=== PATIENT | female | born 1945 | race Caucasian/White ===

== ENCOUNTER 2017-04-19 06:03 | Inpatient (IN) | payer BC, MEDICAID ==
[2017-04-19] VITALS (7 sets, daily range): BP systolic 113–150; BP diastolic 67–104; PULSE 76–162; RESP 18–20; TEMP 98.1; Ht 152.4 cm; Wt 102.0 kg
[~2017-04-19] VITALS: Ht 152.4 cm; Wt 102.0 kg
[~2017-04-19 06:03] MED LIST: METO-448 PO; THY15 PO; THYR60TA PO
[2017-04-19] MEDS ORDERED: ASPIRIN 325 MG TAB PO STA (06:53)
[2017-04-19] MEDS ORDERED: DILTIAZEM 25 MG INJ IV ONE (07:00)
[2017-04-19] MEDS ORDERED: ENOXAPARIN 100 MG/ML SYG SC ONE (07:00)
[2017-04-19] MEDS ORDERED: DILTIAZEM-D5W 125MG/125ML DRIP 125 ML IV SCH ×2 (07:00→15:30)
[2017-04-19 07:49] LABS: BASOPHILS % 0.9 % (0.0-2.0); EOSINOPHILS # 0.1 10^3/ul (0.0-0.5); EOSINOPHILS % 1.7 % (0.0-7.0); HEMATOCRIT 48.2 % (37.0-47.0); HEMOGLOBIN 16.1 g/dl (12.0-16.0); LYMPHOCYTES # 1.3 10^3/ul (0.8-2.9); LYMPHOCYTES % 27.2 % (15.0-51.0); MEAN CORPUSCULAR HEMOGLOBIN 32.8 pg (29.0-33.0); MEAN CORPUSCULAR HGB CONC 33.4 g/dl (32.0-37.0); MEAN CORPUSCULAR VOLUME 98.2 fl (82.0-101.0); MEAN PLATELET VOLUME 9.9 fl (7.4-10.4); MONOCYTE # 0.5 10^3/ul (0.3-0.9); MONOCYTES % 11.5 % (0.0-11.0); NEUTROPHIL # 2.7 10^3/ul (1.6-7.5); NEUTROPHILS % 58.3 % (39.0-77.0); PLATELET COUNT 186 10^3/UL (140-415); RED BLOOD COUNT 4.91 10^6/ul (4.20-5.40); RED CELL DISTRIBUTION WIDTH 13.3 % (11.5-14.5); WHITE BLOOD COUNT 4.7 10^3/ul (4.8-10.8)
[2017-04-19] MEDS ORDERED: NICARDipine HCL 30 MG CAPSULE PO ONE ×2 (08:00→10:00)
--- NOTE | 2017-04-19 08:13 | RADRPT ---
PROCEDURE: XR Chest. CLINICAL INDICATION: Chest pain. TECHNIQUE: Single frontal chest x-ray. COMPARISON: Chest radiograph 02/04/2016. FINDINGS: The cardiac silhouette is mildly enlarged. There is mild pulmonary vascular congestion. Aortic ath erosclerotic vascular calcifications are identified. No pneumothorax, pleural effusion or consolidation is seen. No acute osseous abnormality is noted. IMPRESSION: 1. Mild cardiomegaly and pulmonary vascular congestion. 2. Aortic atherosclerosis. RPTAT: UU .Juanita Aly MD, Date Time Electronically viewed and signed by .Juanita Aly MD, on 04/19/2017 08:13 .N/
[2017-04-19 08:24] LABS: INR 0.95; PROTIME 12.7 Sec (12.2-14.2)
[2017-04-19 08:25] LABS: PARTIAL THROMBOPLASTIN TIME 26.7 Sec (25.0-35.0)
[2017-04-19 08:30] LABS: ALBUMIN 4.2 g/dl (3.3-4.9); ALBUMIN/GLOBULIN RATIO 1.44; BILIRUBIN,INDIRECT 0.6 mg/dl (0-1.1); BILIRUBIN,TOTAL 0.6 mg/dl (0.2-1.3); CALCIUM 9.1 mg/dl (8.4-10.2); CREATININE 0.76 mg/dl (0.44-1.00); POTASSIUM 4.1 mmol/L (3.5-5.1); TOTAL PROTEIN 7.1 g/dl (6.1-8.1)
[2017-04-19 08:43] LABS: TROPONIN-I 0.012 ng/ml (0.00-0.12)
--- NOTE | 2017-04-19 09:00 | ERA ---
ER Documentation Chief Complaint Date/Time DATE: 04/19/17 TIME: 08:56 Chief Complaint PALPITATIONS X 1 MONTH HPI This is a 71-year-old female with a history of atrial fibrillation in the . The patient states for the past month she has had off-and-on palpitations and dizziness. The palpitations do not occur daily and do not last more than a couple of hours she states. She says she has no chest pain no shortness of breath no pain in the neck shoulders arms elbows. She says she is not on any blood thinners. She said today her palpitations began this morning when she woke have not subsided so she is here for evaluation. ROS All systems reviewed and are negative except as per history of present illness. Medications Home Meds Active Scripts Metoprolol Tartrate* (Lopressor*) 25 Mg Tab, 25 MG PO BID for 30 Days, TAB 3 Refills Prov:SREEDHAR DESAI F 01/26/15 Reported Medications Thyroid* (Thyroid*) 15 Mg Tablet, 30 MG PO on , TAB 07/08/15 Thyroid* ([place] Thyroid*) 60 Mg Tablet, 60 MG PO DAILY, TAB 01/25/15 Allergies Allergies: Coded Allergies: Penicillins (Verified Allergy, Mild, 07/08/15) acetaminophen (Verified Allergy, Unknown, vomiting, 07/08/15) hydrocodone (Verified Allergy, Unknown, vomiting, 07/08/15) PMhx/Soc History of Surgery: Yes (appendectomy, port removal) Anesthesia Reaction: No Hx Neurological Disorder: No Hx Respiratory Disorders: No Hx Cardiac Disorders: Yes (AFIB., CARDIAC ARREST, CHF, HTN) Hx Psychiatric Problems: No Hx Miscellaneous Medical Probl: Yes (HYPOTHYROID, diverticulitis) Hx Alcohol Use: Yes (martini daily) Hx Substance Use: No Hx Tobacco Use: Yes Smoking Status: Former smoker FmHx Family History: No coronary disease Physical Exam Vitals Vital Signs Date Time Temp Pulse Resp B/P Pulse Ox O2 Delivery O2 Flow Rate FiO2 04/19/17 07:29 Nasal Cannula 2 04/19/17 06:22 98.1 142 18 172/123 99 Physical Exam Const: Well-developed, well-nourished Head: Atraumatic, normocephalic Eyes: Normal Conjunctiva, PERRLA, EOMI, normal sclera, no nystagmus ENT: Normal External Ears, Nose and Mouth, moist mucus membranes. Neck: Full range of motion. No meningismus, no lymphadenopathy. Resp: Clear to auscultation bilaterally, no wheezing, rhonchi, rales Cardio: Tachycardia irregularly irregular rhythm, no murmurs, S1 S2 present Abd: Soft, non tender x 4, non distended. Normal bowel sounds, no guarding or rebound, no pulsitile abdominal masses or bruits Skin: No petechiae or rashes, no ecchymosis , no maculopapular rash Back: No midline or flank tenderness Ext: No cyanosis, or edema, FROM x 4, normal inspection, neurovascularly intact x 4 Neur: Awake and alert, STR 5/5 x 4, sensation intact x 4, no focal findings, cerebellum intact Psych: Normal Mood and Affect Result Diagram: 04/19/17 0720 04/19/17 0720 Results 24 hrs Laboratory Tests Test 04/19/17 07:20 White Blood Count 4.710^3/ul Red Blood Count 4.9110^6/ul Hemoglobin 16.1g/dl Hematocrit 48.2% Mean Corpuscular Volume 98.2fl Mean Corpuscular Hemoglobin 32.8pg Mean Corpuscular Hemoglobin Concent 33.4g/dl Red Cell Distribution Width 13.3% Platelet Count 81071^3/UL Mean Platelet Volume 9.9fl Neutrophils % 58.3% Lymphocytes % 27.2% Monocytes % 11.5% Eosinophils % 1.7% Basophils % 0.9% Nucleated Red Blood Cells % 0.0/100WBC Neutrophils # 2.710^3/ul Lymphocytes # 1.310^3/ul Monocytes # 0.510^3/ul Eosinophils # 0.110^3/ul Basophils # 0.010^3/ul Nucleated Red Blood Cells # 0.010^3/ul Prothrombin Time 12.7Sec Prothrombin Time Ratio 1.0 INR International Normalized Ratio 0.95 Activated Partial Thromboplast Time 26.7Sec Sodium Level 146mmol/L Potassium Level 4.1mmol/L Chloride Level 107mmol/L Carbon Dioxide Level 23mmol/L Anion Gap 20 Blood Urea Nitrogen 11mg/dl Creatinine 0.76mg/dl Glucose Level 121mg/dl Calcium Level 9.1mg/dl Total Bilirubin 0.6mg/dl Direct Bilirubin 0.00mg/dl Indirect Bilirubin 0.6mg/dl Aspartate Amino Transf (AST/SGOT) 34IU/L Alanine Aminotransferase (ALT/SGPT) 34IU/L Alkaline Phosphatase 77IU/L Troponin I 0.012ng/ml B-Type Natriuretic Peptide 878PG/ML Total Protein 7.1g/dl Albumin 4.2g/dl Globulin 2.90g/dl Albumin/Globulin Ratio 1.44 Current Medications Medications (Trade) Dose Ordered Sig/Karlee Route PRN Reason Start Time Stop Time Status Last Admin Dose Admin Aspirin (Aspirin) 325 mg ONCE STAT PO 04/19/17 06:53 04/19/17 06:54 DC 04/19/17 07:24 Enoxaparin Sodium (Lovenox) 100 mg ONCE ONCE SC 04/19/17 07:00 04/19/17 07:01 DC 04/19/17 07:23 Diltiazem HCl 20 mg 20 mg ONCE ONCE IV 04/19/17 07:00 04/19/17 07:01 DC 04/19/17 07:15 Diltiazem HCl (Cardizem-D5W 125 Mg/125 ml Drip) 125 ml @ 0 mls/hr Q0M IV 04/19/17 07:00 04/19/17 07:23 Nicardipine HCl (Cardene) 30 mg ONCE ONCE PO 04/19/17 08:00 04/19/17 08:01 DC 04/19/17 07:42 Procedures/MDM EKG: Rate/Rhythm: Atrial fibrillation with RVR rate 143. Right axis deviation QRS, ST, QT: NORMAL, QRS, QT] Impression: A. fib with RVR ROCEDURE: XR Chest. CLINICAL INDICATION: Chest pain. TECHNIQUE: Single frontal chest x-ray. COMPARISON: Chest radiograph 02/04/2016. FINDINGS: The cardiac silhouette is mildly enlarged. There is mild pulmonary vascular congestion. Aortic atherosclerotic vascular calcifications are identified. No pneumothorax, pleural effusion or consolidation is seen. No acute osseous abnormality is noted. IMPRESSION: 1. Mild cardiomegaly and pulmonary vascular congestion. 2. Aortic atherosclerosis. RPTAT: UU .Farbod Nasseri, MD, Date Time Electronically viewed and signed by .Juanita Aly MD, MD on 04/19/2017 08: 13 .N/ CC: SUNNY WARREN DO Patient was given Cardizem IV bolus followed by a Cardizem drip which is resulted in a rate controlled atrial fibrillation. Patient blood pressure is quite elevated on arrival of 174/126. Is now better after Cardizem drip and Cardene p.o. The patient will be admitted to the hospital for A. fib with RVR and uncontrolled hypertension. She was given Lovenox 100 mg subcu. Critical Care Time: 32 minutes Treatments/Evaluations: Close monitoring and treatment of unstable vital signs, cardiorespiratory, and neurologic status, while maintaining tight balance of fluid, respiratory, and cardiac interventions. This time includes discussing the case with the patient and the patient's family. This time does not include all procedures stated elsewhere in this record. This time also includes reviewing old records, labs and radiological studies. This time includes examining and re-examining the patient. Additionally, this time also includes arranging care with admitting and consulting physicians. Departure Diagnosis: Primary Impression: Rapid atrial fibrillation Additional Impression: Uncontrolled hypertension Condition: Stable SUNNY WARREN DO Apr 19, 2017 09:00
[2017-04-19] MEDS ORDERED: LEVO125T71 PO (09:38)
[2017-04-19] MEDS ORDERED: hydrALAzine 20 MG INJ IV ONE (10:00)
[2017-04-19] MEDS ORDERED: ONDANSETRON 4 MG INJ IV PRN ×2 (10:00→15:30)
[2017-04-19] MEDS ORDERED: ACETAMINOPHEN 325 MG TAB PO PRN ×2 (10:00→15:30)
[2017-04-19] MEDS ORDERED: traMADol 50 MG TAB PO ONE (13:30)
--- NOTE | 2017-04-19 15:04 | HP ---
Date/Time of Note Date/Time of Note DATE: 04/19/17 TIME: 15:00 Assessment/Plan VTE Prophylaxis VTE Prophylaxis Intervention: LMWH (Anticoagulation in setting of A. fib) Lines/Catheters IV [facility] Saline Lock Assessment/Plan Assessment/Plan 71-year-old female with: 1. Atrial fibrillation, chronic, patient has tapered off herself on metoprolol at least a year ago therefore not recently treated. She claims recurrence of symptoms a month ago and currently in A. fib with RVR. Dr. Carpenter's partner has been called for consultation, patient on Cardizem drip, will start Lovenox for anticoagulation but the patient usually refuses to take anything. We will check thyroid function testing and a repeat echocardiogram Rule out for acute coronary syndrome. Further recommendations per cardiology. 2. Hypothyroidism: Check thyroid function testing, continue levothyroxine 3. Hypertension: Currently under control while on Cardizem drip, additional medications as needed Prophylaxis: Pepcid for GI prophylaxis, Lovenox full dose for stroke prophylaxis while in atrial fibrillation Disposition: Admit to telemetry, cardiology consult pending, heart rate control. HPI/ROS Admit Date/Time Admit Date/Time Apr 19, 2017 at 09:37 Hx of Present Illness Chief complaint: Palpitations and shortness of breath History of presenting illness: This is a 71-year-old female with known atrial fibrillation and hypothyroidism. She has been seen in the past started on metoprolol she is a patient of Dr. Carpenter or at least meant to be a patient of Dr. Carpenter and presented this morning with complaint of palpitations and shortness of breath when she woke up On her last admission patient was discharged on metoprolol for rate control along with anticoagulation however she reports that she has refused to take anticoagulation and she tapered herself off the metoprolol because she was having side effects from it. To be noted she has not seen any physicians in the meantime as she said because she was off all medication she felt like she did not need to follow-up with any physician. She reports that over the past year she has been doing well however over the past month she started having episodes of palpitations. She tried to relax, avoid stressful situations as she did not want to resume any medications. However this morning she woke up with palpitations and fluttering of her chest, also was short of breath so she decided to come to the emergency department. She was found to be in atrial fibrillation and rapid ventricular rate with heart rate in the 150s. She denies chest pain, nausea, vomiting, diaphoresis, dizziness, abdominal pain, genitourinary complaints, neurological deficit. She is currently on Cardizem drip. Dr. Carpenter has been called and one of her partners will be seeing the patient. PMH/Family/Social Past Medical History Atrial fibrillation, chronic and off medication for the past year on her own volition Hypothyroidism Hypertension Anxiety disorder Medical History: hypertension, hyperthyroid Past Surgical History Status post partial colectomy for diverticulitis and colostomy reversal in 2011 Status post hysterectomy Family History Significant Family History: no pertinent family hx Social History Alcohol Use: none Smoking Status: Former smoker Drug Use: none Exam/Review of Systems Vital Signs Vitals Vital Signs Date Time Temp Pulse Resp B/P Pulse Ox O2 Delivery O2 Flow Rate FiO2 04/19/17 12:26 98.2 105 18 149/67 94 Room Air 04/19/17 07:29 2 Exam Constitutional: alert, oriented, other (Obese), well developed Respiratory: clear to auscultation, normal air movement Cardiovascular: irregular rhythm (Uncontrolled A. fib but heart rate down to 120) Gastrointestinal: non-tender, soft Musculoskeletal: nl extremities to inspection Extremities: normal pulses, other (No edema, clubbing or cyanosis) Neurological: CELLOPHANER II-XII intact, nl mental status, nl speech, nl strength Labs Result Diagram: 04/19/1771904/19/17719 Medications Medications Outpatient medications: Levothyroxine 125 mcg daily Current Medications Diltiazem HCl (Cardizem-D5W 125 Mg/125 ml Drip) 125 ml @ 0 mls/hr Q0M IV Last administered on 04/19/17t 07:23; Admin Dose 5 MLS/HR; Start 04/19/17 at 07:00 Procedures Procedures PROCEDURE: XR Chest. CLINICAL INDICATION: Chest pain. TECHNIQUE: Single frontal chest x-ray. COMPARISON: Chest radiograph 02/04/2016. FINDINGS: The cardiac silhouette is mildly enlarged. There is mild pulmonary vascular congestion. Aortic atherosclerotic vascular calcifications are identified. No pneumothorax, pleural effusion or consolidation is seen. No acute osseous abnormality is noted. IMPRESSION: 1. Mild cardiomegaly and pulmonary vascular congestion. 2. Aortic atherosclerosis. RPTAT: UU .Juanita Aly MD, Date Time Electronically viewed and signed by .Juanita Aly MD, on 04/19/2017 08:13 SREEDHAR DESAI Apr 19, 2017 15:04
[2017-04-19] MEDS ORDERED: traMADol 50 MG TAB PO PRN (15:30)
[2017-04-19] MEDS ORDERED: NACL 0.9% 3 ML SYG IV SCH (15:30)
[2017-04-19] MEDS ORDERED: MAGNESIUM HYDROXIDE 30ML CUP PO PRN (15:30)
[2017-04-19] MEDS ORDERED: DOCUSATE SODIUM 100 MG CAP PO PRN (15:30)
[2017-04-19] MEDS ORDERED: NITROGLYCERIN (SL) 0.4 MG TAB SL PRN (15:30)
[2017-04-19] MEDS ORDERED: LORAZEPAM 0.5 MG TAB PO PRN (15:30)
[2017-04-19] MEDS ORDERED: BISACODYL 10 MG SUPP PR PRN (15:30)
[2017-04-19] MEDS ORDERED: DIGOXIN 500 MCG INJ IV ONE (16:00)
--- NOTE | 2017-04-19 16:11 | CONS ---
Date/Time of Note Date/Time of Note DATE: 04/19/17 TIME: 16:03 Assessment/Plan Assessment/Plan Additional Assessment/Plan 1. Afib with RVR 2. HTN 3. CHF/ SOB due to above. 4. noncomliance 5. hypothyroidism REC: ASA since she refuses anticoagluation echo check TSH/ Free TSH and adjust. will start coreg po and adjust dig iv for now titrate off cardizem iv drip once HR IS BETTER controlled. out pt follow up with DR Dow Consultation Date/Type/Reason Admit Date/Time Apr 19, 2017 at 09:37 Date of Consultation: Apr 19, 2017 Type of Consultation: CARDIIOLOGY Reason for Consultation AFIB WITH RVR Referring Provider: SREEDHAR DESAI Cardiology consultation ( on behalf of Dr. Dow) Dear , thank you for his referral. This is a 71-year-old female with history of chronic atrial fibrillation noncompliant, hypothyroidism who has not been feeling well over the past month at least. Patient says that today she felt worse she was having palpitations shortness of breath difficulty breathing. She decided to come to the emergency room was noted to be severely hypertensive as her atrial fibrillation rapid ventricular response heart around 150s. Patient has been placed on Cardizem drip harvested elevated in atrial fibrillation. Breathing better dull and is feeling better. Review of the old social the patient has previously had atrial fibrillation. She was previously discharged anticoagulation of metoprolol. However she has refused to have any follow-up done with her nursing informatics clinical analyst Dr. Dow on a regular basis. She has "Wean herself off of metoprolol" and she states that she is refusing to take any anticoagulant because it is " rat poison". She states that she likes to take only natural medication. She has had a metoprolol did not feed well will had and she does not want to take it. Patient denies any chest pain or pressure to me. Medications At Home Synthroid Allergies penicillin Tylenol hydrocodone but her report Family history other eloquently artery disease. Past Medical History Medical History: hypertension, hyperthyroid Social History Alcohol Use: none Smoking Status: Former smoker Drug Use: none Exam/Review of Systems Vital Signs Vitals Vital Signs Date Time Temp Pulse Resp B/P Pulse Ox O2 Delivery O2 Flow Rate FiO2 04/19/17 12:26 98.2 105 18 149/67 94 Room Air 04/19/17 07:29 2 Exam General: no acute distress. obese. HEENT: NC/AT. pupils are equal. round. NECK: NO JVD. no stridor. CV: irregularly irregular. systolic murmur; no gallop or rubs. PULM: no wheezing or rhonchi. GI: SOFT, NT, ND, no rebound or guarding Extremity: + B/L LE edema. no clubbing. neuro: awake and alert, OX3. Psych: calm and pleasant rectal: deferred : normal ECG afib RVR. nonspecific ST abn Results Result Diagram: 04/19/17 0720 04/19/17 0720 Results 24 hrs Laboratory Tests Test 04/19/17 07:20 White Blood Count 4.7 L Red Blood Count 4.91 Hemoglobin 16.1 H Hematocrit 48.2 H Mean Corpuscular Volume 98.2 Mean Corpuscular Hemoglobin 32.8 Mean Corpuscular Hemoglobin Concent 33.4 Red Cell Distribution Width 13.3 Platelet Count 186 Mean Platelet Volume 9.9 # Neutrophils % 58.3 Lymphocytes % 27.2 Monocytes % 11.5 H Eosinophils % 1.7 Basophils % 0.9 Nucleated Red Blood Cells % 0.0 Neutrophils # 2.7 Lymphocytes # 1.3 Monocytes # 0.5 Eosinophils # 0.1 Basophils # 0.0 Nucleated Red Blood Cells # 0.0 Prothrombin Time 12.7 Prothrombin Time Ratio 1.0 INR International Normalized Ratio 0.95 Activated Partial Thromboplast Time 26.7 Sodium Level 146 H Potassium Level 4.1 Chloride Level 107 Carbon Dioxide Level 23 Anion Gap 20 H Blood Urea Nitrogen 11 Creatinine 0.76 Glucose Level 121 Calcium Level 9.1 Total Bilirubin 0.6 Direct Bilirubin 0.00 Indirect Bilirubin 0.6 Aspartate Amino Transf (AST/SGOT) 34 Alanine Aminotransferase (ALT/SGPT) 34 Alkaline Phosphatase 77 Troponin I 0.012 B-Type Natriuretic Peptide 878 H Total Protein 7.1 Albumin 4.2 Globulin 2.90 Albumin/Globulin Ratio 1.44 Medications Medications Current Medications Tramadol HCl (Ultram) 50 mg Q6H PRN PO PAIN; Start 04/19/17 at 15:30 Lorazepam (Ativan) 0.5 mg Q8H PRN PO ANXIETY; Start 04/19/17 at 15:30 Ondansetron HCl (Zofran Inj) 4 mg Q6H PRN IV NAUSEA AND/OR VOMITING; Start at 15:30 Nitroglycerin (Nitroglycerin (Sl Tab) 0.4 Mg) 1 tab Q5M PRN SL CHEST PAIN; Start 04/19/17 at 15:30 Acetaminophen (Tylenol Tab) 650 mg Q6H PRN PO PAIN LEVEL 1-3 OR FEVER; Start at 15:30 Docusate Sodium (Colace) 100 mg Q12H PRN PO CONSTIPATION; Start 04/19/17 at 15: 30 Magnesium Hydroxide (Milk Of Mag) 30 ml DAILY PRN PO CONSTIPATION; Start at 15:30 Bisacodyl (Dulcolax Supp) 10 mg DAILY PRN AR CONSTIPATION; Start 04/19/17 at 15 :30 Famotidine (Pepcid) 20 mg DAILY PO ; Start 04/19/17 at 15:30 Enoxaparin Sodium 100 mg 100 mg Q12 SC ; Start 04/19/17 at 21:00 Diltiazem HCl (Cardizem-D5W 125 Mg/125 ml Drip) 125 ml @ 5 mls/hr TITRATE IV ; Start 04/19/17 at 15:30 Carvedilol (Coreg) 12.5 mg BID PO ; Start 04/19/17 at 16:00; Status UNV Digoxin (Digoxin) 250 mcg NOW ONCE IV ; Start 04/19/17 at 16:00; Stop 04/19/17 at 16:01; Status UNV Digoxin (Digoxin) 250 mcg Q4 IV ; Start 04/19/17 at 20:00; Stop 04/20/17 at 01: 01; Status UNV PHILIP ORELLANA MD Apr 19, 2017 16:11
[2017-04-19] MEDS: FAMOTIDINE 20 MG TAB PO SCH (16:12)
[2017-04-19 16:29] LABS: CREATINE KINASE < 20 IU/L (23-200)
[2017-04-19 16:41] LABS: CK-MB 0.73 ng/ml (0.0-2.4)
[2017-04-19 16:45] LABS: TROPONIN-I < 0.012 ng/ml (0.00-0.12)
--- NOTE | 2017-04-19 18:52 | RADRPT ---
Echocardiogram Report Patient Name: RAFA INMAN Gender: Female Date: 1945 Study Date: 19-Apr-2017 Manager Surgical: Daryl Funez [facility] Location: [id number] Ref. Physician: PHILIP GARDNER Quality: Good Procedures: Transthoracic echocardiogram with complete 2D, M-Mode, and doppler examination. Indications: Atrial Fibrillation. 2D/M Mode Doppler Measurement Value Normal Ranges Measurement Value Normal Ranges LVIDd 2D 5.1 3.5 - 5.6 cm AV Peak Garcia 1.7 m/sec LVIDs 2D 3.1 2.1 - 4.1 cm AV Peak PG 11.0 mmHg FS 2D 39.6 % LVOT Peak Garcia 1.1 m/sec LVPWd 2D 0.9 0.6 - 1.1 cm LVOT Peak PG 5.0 mmHg IVSd 2D 1.0 0.6 - 1.1 cm TR Peak Garcia 3.0 m/sec IVS/LVPW 2D 1.0 TR Peak PG 36.0 mmHg AoR Diam 2D 3.3 2.0 - 3.7 cm RVSP 39.0 mmHg LA/Ao 2D 1 0 - 1 EDV 2D 130.0 cm3 ESV 2D 28.7 cm3 LA Dimen 2D 4.3 2.3 - 4.0 cm Findings Left Ventricle: Normal left ventricular systolic function. Normal left ventricular cavity size. Normal left ventricular wall thickness. Ejection fraction is visually estimated at 60 %. Tissue Doppler/Mitral Doppler indices are indeterminate in this study due to the presence of atrial fibrillation. Right Ventricle: Normal right ventricular size. Normal right ventricular systolic function. Left Atrium: There is mild enlargement of left atrium. Right Atrium: There is mild enlargement of right atrium. Mitral Valve: Normal appearance of the mitral valve. Mild mitral annular calcification. Trace mitral regurgitation. Aortic Valve: Aortic sclerosis without stenosis. Mild aortic valve regurgitation. Tricuspid Valve: Normal appearance of the tricuspid valve. Estimated peak PA systolic pressure 39 mmHg. There is mild tricuspid regurgitation. Pulmonic Valve: Normal pulmonic valve appearance. Pericardium: Normal pericardium with no significant pericardial effusion. Aorta: Normal aortic root. IVC: Normal size and normal respiratory collapse consistent with normal right atrial pressure. Conclusions 1.Normal left ventricular systolic function. Normal left ventricular cavity size. Normal left ventricular wall thickness. Ejection fraction is visually estimated at 60 %. Tissue Doppler/Mitral Doppler indices are indeterminate in this study due to the presence of atrial fibrillation. 2.There is mild enlargement of left atrium. 3.There is mild enlargement of right atrium. 4.Normal appearance of the mitral valve. Mild mitral annular calcification. Trace mitral regurgitation. 5.Aortic sclerosis without stenosis. Mild aortic valve regurgitation. 6.Normal appearance of the tricuspid valve. Estimated peak PA systolic pressure 39 mmHg. There is mild tricuspid regurgitation. Electronically Signed By: Philip Gardner 19-Apr-2017 18:52:08 -0700 Patient Name: RAFA INMAN Study Date: 19-Apr-2017 [id number]
[2017-04-19] MEDS: DIGOXIN 500 MCG INJ IV SCH ×2 (20:15→23:49)
[2017-04-19] MEDS: ENOXAPARIN 100 MG/ML SYG SC SCH (20:23)
[2017-04-19 20:52] LABS: CREATINE KINASE < 20 IU/L (23-200)
[2017-04-19 21:01] LABS: CK-MB 0.62 ng/ml (0.0-2.4)
[2017-04-19 21:02] LABS: TROPONIN-I < 0.012 ng/ml (0.00-0.12)
[2017-04-20] VITALS (9 sets, daily range): BP systolic 110–130; BP diastolic 60–65; PULSE 50–172; RESP 19–20
[2017-04-20] MEDS: DIGOXIN 500 MCG INJ IV SCH (04:00)
[2017-04-20] MEDS ORDERED: LEVOTHYROXINE 125 MCG TAB PO SCH (07:00)
[2017-04-20 07:19] LABS: BASOPHILS % 0.7 % (0.0-2.0); EOSINOPHILS # 0.1 10^3/ul (0.0-0.5); EOSINOPHILS % 2.5 % (0.0-7.0); LYMPHOCYTES # 1.3 10^3/ul (0.8-2.9); LYMPHOCYTES % 32.6 % (15.0-51.0); MEAN CORPUSCULAR HEMOGLOBIN 32.4 pg (29.0-33.0); MEAN CORPUSCULAR HGB CONC 32.6 g/dl (32.0-37.0); MEAN CORPUSCULAR VOLUME 99.5 fl (82.0-101.0); MEAN PLATELET VOLUME 9.8 fl (7.4-10.4); MONOCYTE # 0.6 10^3/ul (0.3-0.9); MONOCYTES % 14.2 % (0.0-11.0); NEUTROPHILS % 49.8 % (39.0-77.0); PLATELET COUNT 173 10^3/UL (140-415); RED BLOOD COUNT 4.32 10^6/ul (4.20-5.40); RED CELL DISTRIBUTION WIDTH 13.5 % (11.5-14.5); WHITE BLOOD COUNT 4.1 10^3/ul (4.8-10.8)
[2017-04-20 07:55] LABS: ALBUMIN 3.6 g/dl (3.3-4.9); ALBUMIN/GLOBULIN RATIO 1.44; BILIRUBIN,INDIRECT 1.1 mg/dl (0-1.1); BILIRUBIN,TOTAL 1.1 mg/dl (0.2-1.3); CALCIUM 8.8 mg/dl (8.4-10.2); CREATININE 0.73 mg/dl (0.44-1.00); MAGNESIUM 2.1 mg/dl (1.7-2.5); POTASSIUM 3.9 mmol/L (3.5-5.1); TOTAL PROTEIN 6.1 g/dl (6.1-8.1)
[2017-04-20] MEDS: FAMOTIDINE 20 MG TAB PO SCH (08:45)
[2017-04-20] MEDS: ENOXAPARIN 100 MG/ML SYG SC SCH (08:52)
--- NOTE | 2017-04-20 10:31 | PN ---
Date/Time of Note Date/Time of Note DATE: 04/20/17 TIME: 10:30 Assessment/Plan VTE Prophylaxis VTE Prophylaxis Intervention: SCD's Lines/Catheters IV Catheter Type (from Nrs): Saline Lock Assessment/Plan Assessment/Plan 1. Afib with RVR 2. HTN 3. CHF/ SOB due to above. 4. noncomliance 5. hypothyroidism REC: ASA since she refuses anticoagluation echo continue coreg po - rate controleld out pt follow up with DR Dow Subjective 24 Hr Interval Summary Free Text/Dictation The patient with no chest pain or palpitations Exam/Review of Systems Vital Signs Vitals Vital Signs Date Time Temp Pulse Resp B/P Pulse Ox O2 Delivery O2 Flow Rate FiO2 04/20/17 08:49 172 04/20/17 07:46 98.2 19 110/65 94 04/19/17 16:03 Room Air 04/19/17 07:29 2 Intake and Output 04/19/17 04/19/17 04/20/17 15:00 23:00 07:00 Intake Total 850 ml Balance 850 ml Results Result Diagram: 04/20/17 0644 04/20/17 0644 Results 24 hrs Laboratory Tests Test 04/19/17 15:56 04/19/17 20:07 04/20/17 06:44 Magnesium Level 2.0 2.1 Creatine Kinase < 20 L < 20 L Creatine Kinase Index Creatinine Kinase MB (Mass) 0.73 0.62 Troponin I < 0.012 < 0.012 Free Thyroxine 1.85 1.43 White Blood Count 4.1 L Red Blood Count 4.32 Hemoglobin 14.0 Hematocrit 43.0 Mean Corpuscular Volume 99.5 Mean Corpuscular Hemoglobin 32.4 Mean Corpuscular Hemoglobin Concent 32.6 Red Cell Distribution Width 13.5 Platelet Count 173 Mean Platelet Volume 9.8 Neutrophils % 49.8 Lymphocytes % 32.6 Monocytes % 14.2 H Eosinophils % 2.5 Basophils % 0.7 Nucleated Red Blood Cells % 0.0 Neutrophils # 2.0 Lymphocytes # 1.3 Monocytes # 0.6 Eosinophils # 0.1 Basophils # 0.0 Nucleated Red Blood Cells # 0.0 Sodium Level 141 Potassium Level 3.9 Chloride Level 107 Carbon Dioxide Level 22 Anion Gap 16 Blood Urea Nitrogen 10 Creatinine 0.73 Glucose Level 108 Calcium Level 8.8 Total Bilirubin 1.1 Direct Bilirubin 0.00 Indirect Bilirubin 1.1 Aspartate Amino Transf (AST/SGOT) 23 Alanine Aminotransferase (ALT/SGPT) 32 Alkaline Phosphatase 66 B-Type Natriuretic Peptide 805 H Total Protein 6.1 # Albumin 3.6 Globulin 2.50 Albumin/Globulin Ratio 1.44 Triglycerides Level 174 H Cholesterol Level 168 LDL Cholesterol, Calculated 78 HDL Cholesterol 55 Cholesterol/HDL Ratio 3.0 Thyroid Stimulating Hormone (TSH) Pending Medications Medications Current Medications Tramadol HCl (Ultram) 50 mg Q6H PRN PO PAIN Last administered on 04/19/17 20: 14; Admin Dose 50 MG; Start 04/19/17 at 15:30 Lorazepam (Ativan) 0.5 mg Q8H PRN PO ANXIETY Last administered on 04/19/17 20: 13; Admin Dose 0.5 MG; Start 04/19/17 at 15:30 Ondansetron HCl (Zofran Inj) 4 mg Q6H PRN IV NAUSEA AND/OR VOMITING; Start at 15:30 Nitroglycerin (Nitroglycerin (Sl Tab) 0.4 Mg) 1 tab Q5M PRN SL CHEST PAIN; Start 04/19/17 at 15:30 Acetaminophen (Tylenol Tab) 650 mg Q6H PRN PO PAIN LEVEL 1-3 OR FEVER; Start at 15:30 Docusate Sodium (Colace) 100 mg Q12H PRN PO CONSTIPATION; Start 04/19/17 at 15: 30 Magnesium Hydroxide (Milk Of Mag) 30 ml DAILY PRN PO CONSTIPATION; Start at 15:30 Bisacodyl (Dulcolax Supp) 10 mg DAILY PRN IN CONSTIPATION; Start 04/19/17 at 15 :30 Famotidine (Pepcid) 20 mg DAILY PO Last administered on 04/20/17 08:45; Admin Dose 20 MG; Start 04/19/17 at 15:30 Enoxaparin Sodium 100 mg 100 mg Q12 SC Last administered on 04/20/17 08:52; Admin Dose 100 MG; Start 04/19/17 at 21:00 Diltiazem HCl (Cardizem-D5W 125 Mg/125 ml Drip) 125 ml @ 5 mls/hr TITRATE IV Last administered on 04/19/17 23:53; Admin Dose 5 MLS/HR; Start 04/19/17 at 15: 30 Carvedilol (Coreg) 12.5 mg BID PO Last administered on 04/20/17t 08:46; Admin Dose 12.5 MG; Start 04/19/17 at 17:00 LEON SILVA MD Apr 20, 2017 10:31
--- NOTE | 2017-04-20 11:38 | DS ---
Date/Time of Note Date/Time of Note DATE: 04/20/17 TIME: 11:27 Discharge Summary Admission/Discharge Info Admit Date/Time Apr 19, 2017 at 09:37 Discharge Date/Time April 20, 2017 at 12:00 Discharge Diagnosis Atrial Fibrillation with Rapid Ventricular Response: Stable; Continue Coreg 12.5 mg BID ans ASA; patient refused other anti-coagulation Hypothyroidism: Stable; continue levothyroxine 125 mcg daily Morbid Obesity: Stable; continue exercise and diet as prescribed by PCP HTN: Improved with Coreg Patient Condition: Good Consults Cardiology with Dr. Gardner and Royce Procedures Ref. Physician: PHILIP GARDNER Quality: Good Procedures: Transthoracic echocardiogram with complete 2D, M-Mode, and doppler examination. Indications: Atrial Fibrillation. 2D/M Mode Doppler Measurement Value Normal Ranges Measurement Value Normal Ranges LVIDd 2D 5.1 3.5 - 5.6 cm AV Peak Garcia 1.7 m/sec LVIDs 2D 3.1 2.1 - 4.1 cm AV Peak PG 11.0 mmHg FS 2D 39.6 % LVOT Peak Garcia 1.1 m/sec LVPWd 2D 0.9 0.6 - 1.1 cm LVOT Peak PG 5.0 mmHg IVSd 2D 1.0 0.6 - 1.1 cm TR Peak Garcia 3.0 m/sec IVS/LVPW 2D 1.0 TR Peak PG 36.0 mmHg AoR Diam 2D 3.3 2.0 - 3.7 cm RVSP 39.0 mmHg LA/Ao 2D 1 0 - 1 EDV 2D 130.0 cm3 ESV 2D 28.7 cm3 LA Dimen 2D 4.3 2.3 - 4.0 cm Findings Left Ventricle: Normal left ventricular systolic function. Normal left ventricular cavity size. Normal left ventricular wall thickness. Ejection fraction is visually estimated at 60 %. Tissue Doppler/Mitral Doppler indices are indeterminate in this study due to the presence of atrial fibrillation. Right Ventricle: Normal right ventricular size. Normal right ventricular systolic function. Left Atrium: There is mild enlargement of left atrium. Right Atrium: There is mild enlargement of right atrium. Mitral Valve: Normal appearance of the mitral valve. Mild mitral annular calcification. Trace mitral regurgitation. Aortic Valve: Aortic sclerosis without stenosis. Mild aortic valve regurgitation. Tricuspid Valve: Normal appearance of the tricuspid valve. Estimated peak PA systolic pressure 39 mmHg. There is mild tricuspid regurgitation. Pulmonic Valve: Normal pulmonic valve appearance. Pericardium: Normal pericardium with no significant pericardial effusion. Aorta: Normal aortic root. IVC: Normal size and normal respiratory collapse consistent with normal right atrial pressure. Conclusions 1. Normal left ventricular systolic function. Normal left ventricular cavity size. Normal left ventricular wall thickness. Ejection fraction is visually estimated at 60 %. Tissue Doppler/Mitral Doppler indices are indeterminate in this study due to the presence of atrial fibrillation. 2. There is mild enlargement of left atrium. 3. There is mild enlargement of right atrium. 4. Normal appearance of the mitral valve. Mild mitral annular calcification. Trace mitral regurgitation. 5. Aortic sclerosis without stenosis. Mild aortic valve regurgitation. 6. Normal appearance of the tricuspid valve. Estimated peak PA systolic pressure 39 mmHg. There is mild tricuspid regurgitation. Hx of Present Illness Chief complaint: Palpitations and shortness of breath History of presenting illness: This is a 71-year-old female with known atrial fibrillation and hypothyroidism. She has been seen in the past started on metoprolol she is a patient of Dr. Carpenter or at least meant to be a patient of Dr. Carpenter and presented this morning with complaint of palpitations and shortness of breath when she woke up On her last admission patient was discharged on metoprolol for rate control along with anticoagulation however she reports that she has refused to take anticoagulation and she tapered herself off the metoprolol because she was having side effects (leg swelling according to the patient) from it. To be noted she has not seen any physicians in the meantime as she said because she was off all medication she felt like she did not need to follow-up with any physician. She reports that over the past year she has been doing well however over the past month she started having episodes of palpitations. She tried to relax, avoid stressful situations as she did not want to resume any medications. However this morning she woke up with palpitations and fluttering of her chest, also was short of breath so she decided to come to the emergency department. She was found to be in atrial fibrillation and rapid ventricular rate with heart rate in the 150s. She denies chest pain, nausea, vomiting, diaphoresis, dizziness, abdominal pain, genitourinary complaints, neurological deficit. She is currently on Cardizem drip. Dr. Carpenter has been called and one of her partners (Dr. Gardner) will be seeing the patient. Hospital Course 71-year-old female with: 1. Atrial fibrillation, chronic, patient has tapered off herself on metoprolol at least a year ago therefore not recently treated. She claims recurrence of symptoms a month ago and currently in A. fib with RVR. She was placed on a Cardizem drip, will start Lovenox for anticoagulation but the patient usually refuses to take anything. Her HR came under control (around 70) and her SBP was around 110. She felt "100% better" with medications and after conferring with Dr. Crane, a joint decision was made to safely send her home with outpatient follow-up with Dr. Carpenter in her [place] office. 2. Hypothyroidism: we continued her levthyroxine and her TSH was pending at the time of discharge. The free T4 was within normal limits (1.43). 3. Hypertension: Improved with Coreg. 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 Home Meds Reported Medications Levothyroxine Sodium* (Levoxyl*) 125 Mcg Tablet, 125 MCG PO BEFORE BREAKFAST, # 30 TAB 04/19/17 Discontinued Reported Medications Thyroid* (Thyroid*) 15 Mg Tablet, 30 MG PO on , TAB 07/08/15 Thyroid* ([place] Thyroid*) 60 Mg Tablet, 60 MG PO DAILY, TAB 01/25/15 Discontinued Scripts Metoprolol Tartrate* (Lopressor*) 25 Mg Tab, 25 MG PO BID for 30 Days, TAB 3 Refills Prov:LLOYDSREEDHAR F 01/26/15 Follow-up Plan Follow-up with: 1. Dr. Sanchez (PCP) and Dr. Carpenter in 7-10 days Primary Care Provider Herman Sanchez Time spent on discharge: > 30 minutes Pending Labs Laboratory Tests Test 04/19/17 15:56 04/19/17 20:07 04/20/17 06:44 Magnesium Level 2.0mg/dl (1.7-2.5) 2.1mg/dl (1.7-2.5) Creatine Kinase < 20IU/L (23-200) < 20IU/L (23-200) Creatine Kinase Index Creatinine Kinase MB (Mass) 0.73ng/ml (0.0-2.4) 0.62ng/ml (0.0-2.4) Troponin I < 0.012ng/ml (0.00-0.12) < 0.012ng/ml (0.00-0.12) Free Thyroxine 1.85ng/dl (0.78-2.44) 1.43ng/dl (0.78-2.44) White Blood Count 4.110^3/ul (4.8-10.8) Red Blood Count 4.3210^6/ul (4.20-5.40) Hemoglobin 14.0g/dl (12.0-16.0) Hematocrit 43.0% (37.0-47.0) Mean Corpuscular Volume 99.5fl (82.0-101.0) Mean Corpuscular Hemoglobin 32.4pg (29.0-33.0) Mean Corpuscular Hemoglobin Concent 32.6g/dl (32.0-37.0) Red Cell Distribution Width 13.5% (11.5-14.5) Platelet Count 01429^3/UL (140-415) Mean Platelet Volume 9.8fl (7.4-10.4) Neutrophils % 49.8% (39.0-77.0) Lymphocytes % 32.6% (15.0-51.0) Monocytes % 14.2% (0.0-11.0) Eosinophils % 2.5% (0.0-7.0) Basophils % 0.7% (0.0-2.0) Nucleated Red Blood Cells % 0.0/100WBC (0.0-0.0) Neutrophils # 2.010^3/ul (1.6-7.5) Lymphocytes # 1.310^3/ul (0.8-2.9) Monocytes # 0.610^3/ul (0.3-0.9) Eosinophils # 0.110^3/ul (0.0-0.5) Basophils # 0.010^3/ul (0.0-0.1) Nucleated Red Blood Cells # 0.010^3/ul (0.0-0.0) Sodium Level 141mmol/L (135-144) Potassium Level 3.9mmol/L (3.5-5.1) Chloride Level 107mmol/L (97-110) Carbon Dioxide Level 22mmol/L (21-31) Anion Gap 16 (8-16) Blood Urea Nitrogen 10mg/dl (7-20) Creatinine 0.73mg/dl (0.44-1.00) Glucose Level 108mg/dl (70-220) Calcium Level 8.8mg/dl (8.4-10.2) Total Bilirubin 1.1mg/dl (0.2-1.3) Direct Bilirubin 0.00mg/dl (0.00-0.20) Indirect Bilirubin 1.1mg/dl (0-1.1) Aspartate Amino Transf (AST/SGOT) 23IU/L (15-46) Alanine Aminotransferase (ALT/SGPT) 32IU/L (13-69) Alkaline Phosphatase 66IU/L (42-121) B-Type Natriuretic Peptide 805PG/ML (0-125) Total Protein 6.1g/dl (6.1-8.1) Albumin 3.6g/dl (3.3-4.9) Globulin 2.50g/dl (1.3-3.2) Albumin/Globulin Ratio 1.44 Triglycerides Level 174mg/dl (0-149) Cholesterol Level 168mg/dl (100-200) LDL Cholesterol, Calculated 78mg/dl HDL Cholesterol 55mg/dl (33-92) Cholesterol/HDL Ratio 3.0RATIO Thyroid Stimulating Hormone (TSH) Pending ALICE GERONIMO MD Apr 20, 2017 11:37
[2017-04-20] MEDS ORDERED: LEVO125T PO (11:46)
[2017-04-20] MEDS ORDERED: CARV12.579 PO (11:46)
--- NOTE | 2017-04-20 11:49 | PDOCDIS ---
Discharge Instructions DIAGNOSIS Discharge Diagnosis Atrial Fibrillation with Rapid Ventricular Response: Stable; Continue Coreg 12.5 mg BID ans ASA; patient refused other anti-coagulation Hypothyroidism: Stable; continue levothyroxine 125 mcg daily Morbid Obesity: Stable; continue exercise and diet as prescribed by PCP HTN: Improved with Coreg CONDITION Patient Condition: Good HOME CARE INSTRUCTIONS: Diet Instructions: Low Fat /Cholesterol ACTIVITY: Activity Restrictions: No Restrictions FOLLOW UP/APPOINTMENTS Follow-up Plan Dr. Carpenter and Laura in 7-10 days ALICE GERONIMO MD Apr 20, 2017 11:49
[2017-04-22 11:33] LABS: THYROID STIMULATING HORMONE 4.94 MIU/L (0.465-4.680)
== END 2017-04-20 12:20 | disposition home or self-care (01) | DRG 309 ==
LOC: E/R 06:03 → MS3 09:37 → MS4 16:50
PROVIDERS: ADMIT Internal Medicine; ATTEND Internal Medicine
DX: I48.2 Chronic atrial fibrillation (principal); Z68.41 Body mass index [BMI] 40.0-44.9, adult; Z86.74 Personal history of sudden cardiac arrest; E66.01 Morbid (severe) obesity due to excess calories; E03.9 Hypothyroidism, unspecified; I10 Essential (primary) hypertension; F41.9 Anxiety disorder, unspecified; Z87.891 Personal history of nicotine dependence; Z90.49 Acquired absence of other specified parts of digestive tract; Z90.710 Acquired absence of both cervix and uterus; Z91.14 Patient's other noncompliance with medication regimen
CPT/HCPCS: 71010; 80053; 80061; 82550; 82553; 83735; 83880; 84439; 84443; 84484; 85025; 85610; 85730; 93005; 93306; 96372; 96374; 96375; J0360; J1650

== ENCOUNTER 2017-06-08 09:30 | Inpatient (IN) | payer BC ==
[~2017-06-08] VITALS: Ht 172.7 cm; Wt 107.0 kg
[~2017-06-08 09:30] MED LIST changes: +CARV12.579 PO; +LEVO125T PO; -METO-448 PO; -THY15 PO; -THYR60TA PO
[2017-06-08] MEDS ORDERED: DILTIAZEM 25 MG INJ IV ONE ×2 (10:00→11:00)
--- NOTE | 2017-06-08 10:15 | RADRPT ---
PROCEDURE: XR Chest. CLINICAL INDICATION: Chest pain TECHNIQUE: Single portable view of the chest was obtained COMPARISON: 02/04/2016 FINDINGS: The heart is enlarged. The lungs are clear. There is no pleural effusion or pneumothorax. RPTAT: AA IMPRESSION: Mild Cardiomegaly. .Sajan Mackey MD, MD Date Time Electronically viewed and signed by .Sajan Mackey MD, on 06/08/2017 10:15 .S/
[2017-06-08] MEDS ORDERED: FURO40TA4 PO (10:29)
[2017-06-08 10:42] LABS: BASOPHILS % 0.6 % (0.0-2.0); EOSINOPHILS # 0.1 10^3/ul (0.0-0.5); EOSINOPHILS % 1.4 % (0.0-7.0); HEMATOCRIT 44.7 % (37.0-47.0); HEMOGLOBIN 14.5 g/dl (12.0-16.0); LYMPHOCYTES # 1.2 10^3/ul (0.8-2.9); LYMPHOCYTES % 24.1 % (15.0-51.0); MEAN CORPUSCULAR HEMOGLOBIN 32.2 pg (29.0-33.0); MEAN CORPUSCULAR HGB CONC 32.4 g/dl (32.0-37.0); MEAN CORPUSCULAR VOLUME 99.3 fl (82.0-101.0); MEAN PLATELET VOLUME 9.8 fl (7.4-10.4); MONOCYTE # 0.6 10^3/ul (0.3-0.9); MONOCYTES % 10.8 % (0.0-11.0); NEUTROPHIL # 3.2 10^3/ul (1.6-7.5); NEUTROPHILS % 62.7 % (39.0-77.0); PLATELET COUNT 146 10^3/UL (140-415); RED CELL DISTRIBUTION WIDTH 12.8 % (11.5-14.5); WHITE BLOOD COUNT 5.1 10^3/ul (4.8-10.8)
[2017-06-08 10:59] LABS: INR 0.95; PROTIME 12.7 Sec (12.2-14.2)
[2017-06-08 11:00] LABS: PARTIAL THROMBOPLASTIN TIME 26.9 Sec (25.0-35.0)
[2017-06-08 11:02] LABS: ALANINE AMINOTRANSFERASE 72 IU/L (13-69); ALBUMIN 3.6 g/dl (3.3-4.9); ALBUMIN/GLOBULIN RATIO 1.38; ALKALINE PHOSPHATASE 84 IU/L (42-121); ANION GAP 10 (8-16); ASPARTATE AMINO TRANSFERASE 88 IU/L (15-46); BILIRUBIN,INDIRECT 0.7 mg/dl (0-1.1); BILIRUBIN,TOTAL 0.7 mg/dl (0.2-1.3); CARBON DIOXIDE 26 mmol/L (21-31); CHLORIDE 108 mmol/L (97-110); CREATININE 0.79 mg/dl (0.44-1.00); GLUCOSE 121 mg/dl (70-220); POTASSIUM 4.7 mmol/L (3.5-5.1); SODIUM 139 mmol/L (135-144); TOTAL PROTEIN 6.2 g/dl (6.1-8.1)
[2017-06-08 11:09] LABS: BLOOD UREA NITROGEN 17 mg/dl (7-20)
[2017-06-08 11:16] LABS: B-TYPE NATRIURETIC PEPTIDE 1770 PG/ML (0-125)
[2017-06-08 11:24] LABS: TROPONIN-I < 0.012 ng/ml (0.00-0.12)
--- NOTE | 2017-06-08 11:36 | ERA ---
ER Documentation Chief Complaint Date/Time DATE: 06/08/17 TIME: 11:33 Chief Complaint "SOB ,HAVING SIDE EFFECTS FR CARVIDOLOL" HX OF AFIB HPI This is a 71-year-old female with a history of hypertension, atrial fibrillation who is on carvedilol who presents to the emergency room for evaluation of shortness of breath, and heart palpitations. She states that she feels her heart is beating fast and she states that she is extremely short of breath worse with any exertion. She denies any fevers associated with this and states that resting does help improve her shortness of breath however her heart rate has been elevated for greater than 12 hours at this time ROS All systems reviewed and are negative except as per history of present illness. Medications Home Meds Active Scripts Levothyroxine Sodium* (Synthroid*) 125 Mcg Tablet, 125 MCG PO BEFORE BREAKFAST for 30 Days, #30 TAB 1 Refill Take one tablet once daily. Prov:ALICE GERONIMO MD 04/20/17 Carvedilol* (Carvedilol*) 12.5 Mg Tablet, 12.5 MG PO BID for 30 Days, #60 TAB Prov:ALICE GERONIMO MD 04/20/17 Reported Medications Furosemide* (Furosemide*) 40 Mg Tablet, 40 MG PO NEEDED, TAB 06/08/17 Allergies Allergies: Coded Allergies: Penicillins (Verified Allergy, Mild, 06/08/17) acetaminophen (Verified Allergy, Unknown, vomiting, 06/08/17) hydrocodone (Verified Allergy, Unknown, vomiting, 06/08/17) PMhx/Soc History of Surgery: Yes (appendectomy) Anesthesia Reaction: No Hx Neurological Disorder: No Hx Respiratory Disorders: No Hx Cardiac Disorders: Yes (htn, chf a fib cardiac arrest) Hx Psychiatric Problems: No Hx Miscellaneous Medical Probl: No Hx Alcohol Use: Yes (daily martini) Hx Substance Use: No Hx Tobacco Use: No Physical Exam Vitals Vital Signs Date Time Temp Pulse Resp B/P Pulse Ox O2 Delivery O2 Flow Rate FiO2 06/08/17 09:31 99.0 120 28 157/108 Physical Exam INITIAL VITAL SIGNS: Reviewed by me GENERAL: The patient is well developed and appropriate for usual state of health in no apparent distress HEENT: Pupils equal, round, and reactive to light. EOMI. There is no scleral icterus. NECK: C-spine is soft and supple, there is no meningismus. There is no cervical lymphadenopathy. LUNGS: Clear to auscultation bilaterally. There are no rales, wheezes or rhonchi. HEART: Irregularly irregular rhythm, no murmurs, clicks, rubs or gallops. ABDOMEN: Soft, non-tender, non-distended. There are bowel sounds in all four quadrants. No rebound or guarding. EXTREMITIES: 1+ pitting edema in the bilateral lower extremities No focal swelling or erythema. NEUROLOGICAL: The patient moves all four extremities with 5/5 strength. Cranial nerves II - XII are intact. Normal gait. Alert and oriented SKIN: There is no apparent rash or petechiae. HEME/LYMPHATIC: There is no evidence of excessive bruising or lymphedema. PSYCHIATRIC: The patient does not appear anxious or depressed. Result Diagram: 06/08/17 1033 06/08/17 1033 Results 24 hrs Laboratory Tests Test 06/08/17 10:33 White Blood Count 5.110^3/ul Red Blood Count 4.5010^6/ul Hemoglobin 14.5g/dl Hematocrit 44.7% Mean Corpuscular Volume 99.3fl Mean Corpuscular Hemoglobin 32.2pg Mean Corpuscular Hemoglobin Concent 32.4g/dl Red Cell Distribution Width 12.8% Platelet Count 54138^3/UL Mean Platelet Volume 9.8fl Neutrophils % 62.7% Lymphocytes % 24.1% Monocytes % 10.8% Eosinophils % 1.4% Basophils % 0.6% Nucleated Red Blood Cells % 0.0/100WBC Neutrophils # 3.210^3/ul Lymphocytes # 1.210^3/ul Monocytes # 0.610^3/ul Eosinophils # 0.110^3/ul Basophils # 0.010^3/ul Nucleated Red Blood Cells # 0.010^3/ul Prothrombin Time 12.7Sec Prothrombin Time Ratio 1.0 INR International Normalized Ratio 0.95 Activated Partial Thromboplast Time 26.9Sec Sodium Level 139mmol/L Potassium Level 4.7mmol/L Chloride Level 108mmol/L Carbon Dioxide Level 26mmol/L Anion Gap 10 Blood Urea Nitrogen 17mg/dl Creatinine 0.79mg/dl Glucose Level 121mg/dl Calcium Level 9.0mg/dl Total Bilirubin 0.7mg/dl Direct Bilirubin 0.00mg/dl Indirect Bilirubin 0.7mg/dl Aspartate Amino Transf (AST/SGOT) 88IU/L Alanine Aminotransferase (ALT/SGPT) 72IU/L Alkaline Phosphatase 84IU/L Troponin I < 0.012ng/ml B-Type Natriuretic Peptide 1770PG/ML Total Protein 6.2g/dl Albumin 3.6g/dl Globulin 2.60g/dl Albumin/Globulin Ratio 1.38 Current Medications Medications (Trade) Dose Ordered Sig/Karlee Route PRN Reason Start Time Stop Time Status Last Admin Dose Admin Diltiazem HCl (Cardizem Iv) 10 mg ONCE ONCE IV 06/08/17 10:00 06/08/17 10:01 DC 06/08/17 10:23 Diltiazem HCl (Cardizem Iv) 10 mg ONCE ONCE IV 06/08/17 11:00 06/08/17 11:01 DC 06/08/17 11:16 Procedures/MDM EKG: Rate/Rhythm: A. fib with RVR QRS, ST, T-waves: [No changes consistent w/ acute ischemia] Impression: A. fib with RVR EKG: Rate/Rhythm: Atrial fibrillation QRS, ST, T-waves: [No changes consistent w/ acute ischemia] Impression: [No evidence of ischemia or arrhythmia] Chest X-ray 1V Interpreted by me: Soft Tissue: No acute abnormalities Bones: No acute abnormalities Mediastinum/Cardiac Silhouette/Lungs: [No acute abnormalities This 71-year-old female presents to the emergency room for evaluation of heart palpitations and shortness of breath. When I evaluated this patient this patient did have an irregularly irregular rhythm and EKG did confirm my suspicion of A. fib with RVR. This patient was given 10 mg of Cardizem IV however she did not respond to that. The patient was given a second dose of 10 mg IV of Cardizem and the patient's heart rate is now 88 bpm. She is hemodynamically stable, states that her shortness of breath has improved. This patient is on carvedilol however I feel that this patient would benefit from admission for cardiac evaluation, repeat troponin, and possible medication adjustment. The patient is okay to plan of care at this time will be placed in for admission under the care of Dr. Hogan Critical Care: Excluding all billable procedures Time: 36 minutes Treatments/Evaluations: Close monitoring and treatment of unstable vital signs, cardiorespiratory, and neurologic status, while maintaining tight balance of fluid, respiratory, and cardiac interventions. Departure Diagnosis: Primary Impression: Atrial fibrillation with RVR Additional Impressions: Shortness of breath Peripheral edema Condition: Stable CRISTEL PARK DO Jun 08, 2017 11:36
[2017-06-08] MEDS ORDERED: ONDANSETRON 4 MG INJ IV PRN ×2 (12:00→17:00)
[2017-06-08 13:30] VITALS: TEMP 98.4
[2017-06-08 14:29] VITALS: PULSE 94
[2017-06-08 14:45] VITALS: BP 132/92; RESP 20
[2017-06-08 16:03] VITALS: PULSE 96
[2017-06-08 16:09] LABS: CREATINE KINASE < 20 IU/L (23-200)
[2017-06-08 16:13] LABS: CK-MB 0.61 ng/ml (0.0-2.4)
[2017-06-08 16:32] LABS: TROPONIN-I < 0.012 ng/ml (0.00-0.12)
[2017-06-08] MEDS: DILTIAZEM 60 MG TAB PO SCH ×2 (16:49→21:26)
[2017-06-08] MEDS ORDERED: HYDROCODONE/APAP (5/325) TAB PO PRN (17:00)
[2017-06-08] MEDS ORDERED: morphine 2 MG INJ IV PRN (17:00)
[2017-06-08] MEDS ORDERED: NACL 0.9% 3 ML SYG IV SCH (17:00)
[2017-06-08] MEDS ORDERED: DOCUSATE SODIUM 100 MG CAP PO PRN (17:00)
[2017-06-08] MEDS ORDERED: ACETAMINOPHEN 325 MG TAB PO PRN (17:00)
[2017-06-08] MEDS ORDERED: ZOLPIDEM 5 MG TAB PO PRN (17:00)
--- NOTE | 2017-06-08 17:24 | HP ---
Date/Time of Note Date/Time of Note DATE: 06/08/17 TIME: 17:20 Assessment/Plan VTE Prophylaxis VTE Prophylaxis Intervention: LMWH Lines/Catheters IV [facility]ter [facility] (from [facility]): Saline Lock Assessment/Plan Chief Complaint/Hosp Course 1. A. fib with RVR status post Cardizem IV in the ER Rate is still elevated and will start Cardizem 5 mg an hour Start Cardizem 60 mg p.o. every 6 hours Will DC patient home Coreg as she does not like its side effects Continue aspirin, patient has refused other anticoagulation 2. Hypothyroidism continue Synthroid 3. Hypertension Will treat with Cardizem Prophylaxis: Lovenox Problems: HPI/ROS Admit Date/Time Admit Date/Time Jun 08, 2017 at 11:32 Hx of Present Illness Patient is a 71-year-old female with history of A. fib on Coreg, thyroidism, hypertension and morbid obesity. Presents with shortness of breath as well as palpitations that started this morning. Patient does state that she is compliant with her Coreg but that has decreased energy and made her leg swollen. In the ED patient was found to be in A. fib with RVR and was given Cardizem IV with improvement in the rate. Patient has refused anticoagulation in the past. Patient has no other complaints at this time. ROS Constitutional: improved, no complaints Eyes: no complaints ENT: no complaints Respiratory: shortness of breath Cardiovascular: palpitations Gastrointestinal: no complaints Genitourinary: no complaints Musculoskeletal: no complaints Skin: no complaints Neurologic: no complaints Endocrine: no complaints Lymphatic: no complaints Psychological: nl mood/affect, no complaints Immunologic: no complaints PMH/Family/Social Past Medical History As per HPI Family History Significant Family History: no pertinent family hx Social History Alcohol Use: rarely Smoking Status: Former smoker Drug Use: none Exam/Review of Systems Vital Signs Vitals Vital Signs Date Time Temp Pulse Resp B/P Pulse Ox O2 Delivery O2 Flow Rate FiO2 06/08/17 16:03 96 06/08/17 14:45 97.9 20 132/92 98 06/08/17 13:30 Nasal Cannula 2.0 Exam Constitutional: alert, oriented Head: normocephalic Respiratory: clear to auscultation Cardiovascular: irregular rhythm Gastrointestinal: soft, No distended Musculoskeletal: nl extremities to inspection Labs Result Diagram: 06/08/17 1033 06/08/17 1033 Medications Medications Current Medications Diltiazem HCl (Cardizem) 60 mg Q6 PO Last administered on 06/08/17t 16:49; Admin Dose 60 MG; Start 06/08/17 at 16:00 Tizanidine HCl (Zanaflex) 2 mg Q8H PRN PO head neck pain; Start 06/08/17 at 16: 30 Tramadol HCl (Ultram) 50 mg Q6H PRN PO head neck pain; Start 06/08/17 at 16:30 Ondansetron HCl (Zofran Inj) 4 mg Q6H PRN IV NAUSEA AND/OR VOMITING; Start at 17:00 Acetaminophen (Tylenol Tab) 650 mg Q6H PRN PO PAIN LEVEL 1-3 OR FEVER; Start at 17:00 Acetaminophen/ Hydrocodone Bitart ([place] (5/325)) 1 tab Q6H PRN PO MODERATE PAIN LEVEL 4-6; Start 06/08/17 at 17:00 Morphine Sulfate (morphine) 2 mg Q4H PRN IV SEVERE PAIN LEVEL 7-10; Start 06/08 at 17:00 Docusate Sodium (Colace) 100 mg Q12H PRN PO CONSTIPATION; Start 06/08/17 at 17: 00 Zolpidem Tartrate (Ambien) 5 mg QHS PRN PO SLEEP; Start 06/08/17 at 17:00 Enoxaparin Sodium (Lovenox) 40 mg DAILY SC ; Start 06/09/17 at 09:00 Carvedilol (Coreg) 12.5 mg BID PO ; Start 06/08/17 at 21:00 Aspirin (Halfprin) 81 mg DAILY PO ; Start 06/08/17 at 17:00 FRANSICO ADAMES Jun 08, 2017 17:24
[2017-06-08] MEDS: ASPIRIN (EC) 81 MG TAB PO SCH (18:51)
[2017-06-08] MEDS: traMADol 50 MG TAB PO PRN ×2 (18:55→23:48)
[2017-06-08] MEDS: TIZANIDINE 2 MG TAB PO PRN ×2 (18:56→23:52)
[2017-06-08] MEDS ORDERED: DILTIAZEM-D5W 125MG/125ML DRIP 125 ML IV SCH (19:00)
[2017-06-08 20:00] VITALS: BP 132/78; RESP 20
[2017-06-08 20:11] VITALS: PULSE 79
[2017-06-08 22:56] LABS: CREATINE KINASE 25 IU/L (23-200)
[2017-06-08 23:18] LABS: CK-MB 0.77 ng/ml (0.0-2.4)
[2017-06-08 23:26] LABS: TROPONIN-I < 0.012 ng/ml (0.00-0.12)
[2017-06-09] VITALS (13 sets, daily range): BP systolic 104–169; BP diastolic 59–99; PULSE 44–98; RESP 16–20; Ht 172.7 cm; Wt 107.0 kg
[2017-06-09] MEDS: DILTIAZEM 60 MG TAB PO SCH ×3 (01:41→12:04)
[2017-06-09 06:43] LABS: BASOPHILS % 0.5 % (0.0-2.0); EOSINOPHILS # 0.1 10^3/ul (0.0-0.5); EOSINOPHILS % 1.8 % (0.0-7.0); HEMATOCRIT 43.7 % (37.0-47.0); HEMOGLOBIN 14.5 g/dl (12.0-16.0); LYMPHOCYTES # 1.5 10^3/ul (0.8-2.9); LYMPHOCYTES % 25.7 % (15.0-51.0); MEAN CORPUSCULAR HEMOGLOBIN 32.7 pg (29.0-33.0); MEAN CORPUSCULAR HGB CONC 33.2 g/dl (32.0-37.0); MEAN CORPUSCULAR VOLUME 98.6 fl (82.0-101.0); MEAN PLATELET VOLUME 9.7 fl (7.4-10.4); MONOCYTE # 0.8 10^3/ul (0.3-0.9); MONOCYTES % 13.8 % (0.0-11.0); NEUTROPHIL # 3.5 10^3/ul (1.6-7.5); PLATELET COUNT 151 10^3/UL (140-415); RED BLOOD COUNT 4.43 10^6/ul (4.20-5.40); RED CELL DISTRIBUTION WIDTH 12.7 % (11.5-14.5)
[2017-06-09] MEDS: LEVOTHYROXINE 125 MCG TAB PO SCH (06:55)
[2017-06-09 07:26] LABS: CALCIUM 8.9 mg/dl (8.4-10.2); CREATININE 0.82 mg/dl (0.44-1.00); PHOSPHORUS 3.9 mg/dl (2.5-4.9); POTASSIUM 4.1 mmol/L (3.5-5.1)
[2017-06-09] MEDS: ASPIRIN (EC) 81 MG TAB PO SCH (08:25)
[2017-06-09] MEDS: ENOXAPARIN 40 MG/0.4 ML SYG SC SCH (08:28)
[2017-06-09] MEDS: DILTIAZEM (CD) 120 MG CAP PO SCH (15:48)
--- NOTE | 2017-06-09 19:57 | PN ---
Date/Time of Note Date/Time of Note DATE: 06/09/17 TIME: 19:55 Assessment/Plan VTE Prophylaxis VTE Prophylaxis Intervention: LMWH Lines/Catheters [facility] Saline [facility] Assessment/Plan Chief Complaint/Hosp Course 1. A. fib with RVR status post Cardizem IV in the ER Rate is now improved with Cardizem CD 120 Heart rate dropped when was on Cardizem 60 mg p.o. every 6 hours Have discontinued home Coreg as she does not like its side effects Continue aspirin, patient has refused other anticoagulation 2. Hypothyroidism continue Synthroid 3. Hypertension Will treat with Cardizem Prophylaxis: Lovenox DC planning: DC home tomorrow if heart rate stable Problems: Subjective 24 Hr Interval Summary Constitutional: no complaints Exam/Review of Systems Vital Signs Vitals Vital Signs Date Time Temp Pulse Resp B/P Pulse Ox O2 Delivery O2 Flow Rate FiO2 06/09/17 16:25 90 06/09/17 15:39 98.0 16 162/99 97 06/08/17 13:30 Nasal Cannula 2.0 Intake and Output 06/08/17 06/08/17 06/09/17 15:00 23:00 07:00 Intake Total 720 ml 2400 ml Balance 720 ml 2400 ml Exam Constitutional: alert, oriented Respiratory: clear to auscultation Cardiovascular: irregular rhythm Gastrointestinal: soft, No distended Musculoskeletal: nl extremities to inspection Results Result Diagram: 06/09/17 0620 06/09/17 0619 Results 24 hrs Laboratory Tests Test 06/08/17 22:29 06/09/17 06:19 06/09/17 06:20 Creatine Kinase 25 Creatine Kinase Index 3.1 Creatinine Kinase MB (Mass) 0.77 Troponin I < 0.012 Sodium Level 137 Potassium Level 4.1 Chloride Level 108 Carbon Dioxide Level 22 Anion Gap 11 Blood Urea Nitrogen 19 Creatinine 0.82 Glucose Level 121 Calcium Level 8.9 Phosphorus Level 3.9 Magnesium Level 2.0 White Blood Count 6.0 Red Blood Count 4.43 Hemoglobin 14.5 Hematocrit 43.7 Mean Corpuscular Volume 98.6 Mean Corpuscular Hemoglobin 32.7 Mean Corpuscular Hemoglobin Concent 33.2 Red Cell Distribution Width 12.7 Platelet Count 151 Mean Platelet Volume 9.7 Neutrophils % 58.0 Lymphocytes % 25.7 Monocytes % 13.8 H Eosinophils % 1.8 Basophils % 0.5 Nucleated Red Blood Cells % 0.0 Neutrophils # 3.5 Lymphocytes # 1.5 Monocytes # 0.8 Eosinophils # 0.1 Basophils # 0.0 Nucleated Red Blood Cells # 0.0 Hemoglobin A1c 5.5 Medications Medications Current Medications Tizanidine HCl (Zanaflex) 2 mg Q8H PRN PO head neck pain Last administered on 23:52; Admin Dose 2 MG; Start 06/08/17 at 16:30 Tramadol HCl (Ultram) 50 mg Q6H PRN PO head neck pain Last administered on 06/08 23:48; Admin Dose 50 MG; Start 06/08/17 at 16:30 Ondansetron HCl (Zofran Inj) 4 mg Q6H PRN IV NAUSEA AND/OR VOMITING; Start at 17:00 Acetaminophen (Tylenol Tab) 650 mg Q6H PRN PO PAIN LEVEL 1-3 OR FEVER; Start at 17:00 Acetaminophen/ Hydrocodone Bitart ([place] (5/325)) 1 tab Q6H PRN PO MODERATE PAIN LEVEL 4-6; Start 06/08/17 at 17:00 Morphine Sulfate (morphine) 2 mg Q4H PRN IV SEVERE PAIN LEVEL 7-10; Start 06/08 at 17:00 Docusate Sodium (Colace) 100 mg Q12H PRN PO CONSTIPATION; Start 06/08/17 at 17: 00 Zolpidem Tartrate (Ambien) 5 mg QHS PRN PO SLEEP; Start 06/08/17 at 17:00 Enoxaparin Sodium (Lovenox) 40 mg DAILY SC Last administered on 06/09/17 08:28 ; Admin Dose 40 MG; Start 06/09/17 at 09:00 Aspirin (Halfprin) 81 mg DAILY PO Last administered on 06/09/17 08:25; Admin Dose 81 MG; Start 06/08/17 at 17:00 Diltiazem HCl (Cardizem Cd) 120 mg DAILY PO Last administered on 06/09/17 15: 48; Admin Dose 120 MG; Start 06/09/17 at 12:30 FRANSICO ADAMES Jun 09, 2017 19:57
[2017-06-09] MEDS: traMADol 50 MG TAB PO PRN (20:31)
[2017-06-10] VITALS (11 sets, daily range): BP systolic 129–170; BP diastolic 80–93; PULSE 92–109; RESP 17–18
[2017-06-10] MEDS: LEVOTHYROXINE 125 MCG TAB PO SCH (07:54)
[2017-06-10] MEDS: ASPIRIN (EC) 81 MG TAB PO SCH (08:24)
[2017-06-10] MEDS: DILTIAZEM (CD) 120 MG CAP PO SCH (08:25)
[2017-06-10] MEDS: ENOXAPARIN 40 MG/0.4 ML SYG SC SCH (08:38)
--- NOTE | 2017-06-10 13:27 | PN ---
Date/Time of Note Date/Time of Note DATE: 06/10/17 TIME: 13:21 Assessment/Plan VTE Prophylaxis VTE Prophylaxis Intervention: LMWH Lines/Catheters IV Catheter Type (from Nrsg): Saline Lock Assessment/Plan Assessment/Plan 71 yo female with: 1. A. fib with RVR status post Cardizem IV in the ER, still with A fib but much better controlled HR around 106 to 113, she has tolerated Cardizem CD so far, will discharge home today on Cardizem CD 180 Continue aspirin as outpatient as patient has refused other anticoagulation 2. Hypothyroidism continue Synthroid 3. Hypertension on Cardizem now Prophylaxis: Lovenox Prophylaxis: Lovenox for DVT ppx Disposition: d/c home today and f/u with PCP and cardiology Dr Carpenter within 1 week Subjective 24 Hr Interval Summary Free Text/Dictation Patient feeling much better and HR better controlled, up to 114 with ambulation and 80's to low 100's at rest so will discharge on Cardizem CD 180 Exam/Review of Systems Vital Signs Vitals Vital Signs Date Time Temp Pulse Resp B/P Pulse Ox O2 Delivery O2 Flow Rate FiO2 06/10/17 12:06 109 06/10/17 11:25 98.7 18 156/93 98 06/09/17 20:00 Room Air 06/08/17 13:30 2.0 Intake and Output 06/09/17 06/09/17 06/10/17 15:00 23:00 07:00 Intake Total 680 ml 240 ml Balance 680 ml 240 ml Exam Constitutional: alert, oriented, well developed Respiratory: clear to auscultation, normal air movement Cardiovascular: irregular rhythm (much better controlled ), nl pulses Gastrointestinal: non-tender, soft Musculoskeletal: nl extremities to inspection, nl gait and stance Extremities: normal pulses Neurological: BUTTONER II-XII intact, nl mental status, nl speech, nl strength Results Result Diagram: 06/09/1761906/09/17618 Medications Medications Current Medications Tizanidine HCl (Zanaflex) 2 mg Q8H PRN PO head neck pain Last administered on 23:52; Admin Dose 2 MG; Start 06/08/17 at 16:30 Tramadol HCl (Ultram) 50 mg Q6H PRN PO head neck pain Last administered on 06/09 20:31; Admin Dose 50 MG; Start 06/08/17 at 16:30 Ondansetron HCl (Zofran Inj) 4 mg Q6H PRN IV NAUSEA AND/OR VOMITING; Start at 17:00 Acetaminophen (Tylenol Tab) 650 mg Q6H PRN PO PAIN LEVEL 1-3 OR FEVER; Start at 17:00 Acetaminophen/ Hydrocodone Bitart ([place] (5/325)) 1 tab Q6H PRN PO MODERATE PAIN LEVEL 4-6; Start 06/08/17 at 17:00 Morphine Sulfate (morphine) 2 mg Q4H PRN IV SEVERE PAIN LEVEL 7-10; Start 06/08 at 17:00 Docusate Sodium (Colace) 100 mg Q12H PRN PO CONSTIPATION; Start 06/08/17 at 17: 00 Zolpidem Tartrate (Ambien) 5 mg QHS PRN PO SLEEP; Start 06/08/17 at 17:00 Enoxaparin Sodium (Lovenox) 40 mg DAILY SC Last administered on 06/10/17 08:38 ; Admin Dose 40 MG; Start 06/09/17 at 09:00 Aspirin (Halfprin) 81 mg DAILY PO Last administered on 06/10/17 08:24; Admin Dose 81 MG; Start 06/08/17 at 17:00 Diltiazem HCl (Cardizem Cd) 180 mg DAILY PO ; Start 06/11/17 at 09:00 SREEDHAR DESAI Jun 10, 2017 13:27
--- NOTE | 2017-06-10 13:28 | PDOCDIS ---
Discharge Instructions CONDITION Patient Condition: Stable HOME CARE INSTRUCTIONS: Diet Instructions: Low Fat /Cholesterol ACTIVITY: Activity Restrictions: Slowly Increase Activity FOLLOW UP/APPOINTMENTS Follow-up Plan Follow up with PCP within 1 week Follow up with Dr Carpenter in 1 to 2 weeks SREEDHAR DESAI Jun 10, 2017 13:28
[2017-06-10] MEDS ORDERED: DILT180C75 PO (13:29)
[2017-06-10] MEDS ORDERED: ASPI-664 PO (13:30)
[2017-06-10] MEDS ORDERED: DILTIAZEM 30 MG TAB PO ONE (14:00)
[2017-06-11] MEDS ORDERED: DILTIAZEM (CD) 180 MG CAP PO SCH (09:00)
== END 2017-06-10 16:30 | disposition home or self-care (01) | DRG 310 ==
LOC: E/R 09:30 → TEL 11:32
PROVIDERS: ADMIT Internal Medicine; ATTEND Internal Medicine
DX: I48.91 Unspecified atrial fibrillation (principal); E66.01 Morbid (severe) obesity due to excess calories; I10 Essential (primary) hypertension; E03.9 Hypothyroidism, unspecified; Z68.35 Body mass index [BMI] 35.0-35.9, adult
CPT/HCPCS: 36415; 71010; 80048; 80053; 82550; 82553; 83036; 83735; 83880; 84100; 84484; 85025; 85610; 85730; 93005; 96374; 96376; J1650

== ENCOUNTER 2017-09-06 04:21 | Observation (INO) | payer BC ==
[~2017-09-06] VITALS: Ht 172.7 cm; Wt 108.4 kg
[~2017-09-06 04:21] MED LIST changes: +ASPI-664 PO; -CARV12.579 PO; +DILT180C75 PO; +FURO40TA4 PO
[2017-09-06 06:26] LABS: BASOPHILS % 0.5 % (0.0-2.0); EOSINOPHILS # 0.2 10^3/ul (0.0-0.5); EOSINOPHILS % 2.8 % (0.0-7.0); HEMATOCRIT 48.7 % (37.0-47.0); HEMOGLOBIN 16.5 g/dl (12.0-16.0); LYMPHOCYTES # 1.7 10^3/ul (0.8-2.9); LYMPHOCYTES % 29.4 % (15.0-51.0); MEAN CORPUSCULAR HEMOGLOBIN 32.5 pg (29.0-33.0); MEAN CORPUSCULAR HGB CONC 33.9 g/dl (32.0-37.0); MEAN CORPUSCULAR VOLUME 95.9 fl (82.0-101.0); MEAN PLATELET VOLUME 9.7 fl (7.4-10.4); MONOCYTE # 0.8 10^3/ul (0.3-0.9); MONOCYTES % 13.6 % (0.0-11.0); NEUTROPHIL # 3.1 10^3/ul (1.6-7.5); NEUTROPHILS % 53.2 % (39.0-77.0); PLATELET COUNT 176 10^3/UL (140-415); RED BLOOD COUNT 5.08 10^6/ul (4.20-5.40); RED CELL DISTRIBUTION WIDTH 12.8 % (11.5-14.5); WHITE BLOOD COUNT 5.7 10^3/ul (4.8-10.8)
--- NOTE | 2017-09-06 06:38 | ERD ---
ER Documentation Chief Complaint Chief Complaint palpitation HPI 71-year-old female with a history of atrial fibrillation, hypothyroidism, hypertension, obesity, DVT status post IVC filter in 2010, chronic neck and low back pain presents to the ED complaining of palpitations. Last night while lying in bed experience palpitations that did not resolve so she drove herself to the ED. denies chest pain, shortness of breath or nausea and vomiting. Chronic, mild, lower extremity swelling which is unchanged but no leg pain. No abdominal pain or back pain. No headache, visual changes, focal weakness or numbness. No URI symptoms or cough. No fevers or chills. ROS All systems reviewed and are negative except as per history of present illness. Medications Home Meds Active Scripts Levothyroxine Sodium* (Synthroid*) 125 Mcg Tablet, 125 MCG PO BEFORE BREAKFAST for 30 Days, #30 TAB 1 Refill Take one tablet once daily. Prov:ALICE GERONIMO MD 04/20/17 Reported Medications Hydrochlorothiazide* (Hydrochlorothiazide*) 12.5 Mg Tablet, 12.5 MG PO DAILY, # 30 TAB 09/06/17 Propranolol Hcl* (Propranolol Hcl* LA) 160 Mg Cap.sa.24h, 160 MG PO DAILY, CAP 09/06/17 Discontinued Reported Medications Furosemide* (Furosemide*) 40 Mg Tablet, 40 MG PO NEEDED, TAB 06/08/17 Discontinued Scripts Aspirin* (Aspirin* EC) 81 Mg Tablet.dr, 81 MG PO DAILY for 30 Days OTC Prov:SREEDHAR DESAI 06/10/17 Diltiazem Hcl* (Cardizem CD*) 180 Mg Cap.sr.24h, 180 MG PO DAILY for 30 Days, 3 Refills Prov:SREEDHAR DESAI 06/10/17 Allergies Allergies: Coded Allergies: Penicillins (Verified Allergy, Mild, 09/06/17) acetaminophen (Verified Allergy, Unknown, vomiting, 09/06/17) hydrocodone (Verified Allergy, Unknown, vomiting, 09/06/17) PMhx/Soc Reviewed in chart. As per HPI. History of Surgery: Yes ( diverticula, ostomy, hernia) Anesthesia Reaction: Yes ("flatlined" in surgery) Hx Neurological Disorder: No Hx Respiratory Disorders: No (justv recent dyspnea) Hx Cardiac Disorders: Yes (HTN & A-fib) Hx Psychiatric Problems: No Hx Miscellaneous Medical Probl: No Hx Alcohol Use: Yes (social drink) Hx Substance Use: No Hx Tobacco Use: Yes (quit 40+ yrs ago.) FmHx No family history relevant to presenting complaint. Physical Exam Vitals Vital Signs Date Time Temp Pulse Resp B/P Pulse Ox O2 Delivery O2 Flow Rate FiO2 09/06/17 13:22 88 18 158/108 96 Room Air 09/06/17 12:00 90 26 158/97 99 Room Air 09/06/17 10:00 96.7 83 18 153/91 99 Room Air 09/06/17 07:58 92 18 113/88 96 Room Air 09/06/17 06:15 100 19 160/103 93 Room Air 09/06/17 05:49 Nasal Cannula 09/06/17 04:23 96.7 123 20 184/97 97 Physical Exam Const: Alert, no acute distress. Head: Atraumatic Eyes: Normal Conjunctiva ENT: Normal External Ears, Nose and Mouth. Neck: Full range of motion. No JVD. Resp: Breath sounds are equal and clear to auscultation bilaterally Cardio: Irregular rate and rhythm, no murmurs Abd: Soft, obese, non tender, non distended. Normal bowel sounds. No masses or abnormal pulsations. Skin: No petechiae or rashes Back: No midline or flank tenderness Ext: No cyanosis. 1+ edema. No calf swelling or tenderness. Neur: Awake and alert. No focal deficit observed. Psych: Normal Mood and Affect Result Diagram: 09/06/17 0605 09/06/17 0605 Results 24 hrs Laboratory Tests Test 09/06/17 06:05 09/06/17 07:19 White Blood Count 5.710^3/ul Red Blood Count 5.0810^6/ul Hemoglobin 16.5g/dl Hematocrit 48.7% Mean Corpuscular Volume 95.9fl Mean Corpuscular Hemoglobin 32.5pg Mean Corpuscular Hemoglobin Concent 33.9g/dl Red Cell Distribution Width 12.8% Platelet Count 61600^3/UL Mean Platelet Volume 9.7fl Neutrophils % 53.2% Lymphocytes % 29.4% Monocytes % 13.6% Eosinophils % 2.8% Basophils % 0.5% Nucleated Red Blood Cells % 0.0/100WBC Neutrophils # 3.110^3/ul Lymphocytes # 1.710^3/ul Monocytes # 0.810^3/ul Eosinophils # 0.210^3/ul Basophils # 0.010^3/ul Nucleated Red Blood Cells # 0.010^3/ul Sodium Level 141mmol/L Potassium Level 5.0mmol/L Chloride Level 105mmol/L Carbon Dioxide Level 27mmol/L Anion Gap 14 Blood Urea Nitrogen 19mg/dl Creatinine 0.85mg/dl Glucose Level 124mg/dl Calcium Level 9.6mg/dl Troponin I < 0.012ng/ml Magnesium Level 2.0mg/dl Current Medications Medications (Trade) Dose Ordered Sig/Karlee Route PRN Reason Start Time Stop Time Status Last Admin Dose Admin Diltiazem HCl (Cardizem Iv) 10 mg ONCE ONCE IV 09/06/17 09:00 09/06/17 09:01 DC 09/06/17 08:47 Ondansetron HCl (Zofran Inj) 4 mg ER BRIDGE PRN IV NAUSEA AND/OR VOMITING 09/06/17 10:30 09/07/17 10:29 LABS: Unremarkable EKG: Time: 04:29. Atrial fibrillation with RVR. Ventricular rate 106. Occasional PVCs. No acute ST segment elevation or depression. EP Interpretation: Abnormal EKG. Time: 07:33. Atrial fibrillation with PVCs. Ventricular rate 97. No acute ST segment elevation or depression. EP Interpretation: Abnormal EKG. IMAGING: PROCEDURE: XR Chest. CLINICAL INDICATION: Chest pain. TECHNIQUE: Single frontal view of the chest was obtained. COMPARISON: 04/19/2017. FINDINGS: The cardiomediastinal silhouette demonstrates enlargement of the cardiac silhouette. There are aortic calcifications. There is mild pulmonary vascular congestion. No pleural effusion is seen. No definite pneumothorax. No acute osseous abnormality. IMPRESSION: Cardiomegaly with mild pulmonary vascular congestion. RPTAT: AAEE Physician Berny Date Time Electronically viewed and signed by Fe Sotelo Physician on 09/06/2017 06:53 PH/ Procedures/MDM DOCUMENTS REVIEWED: ED nurse, prior ED, prior records including admission 06/08 for atrial fib with RVR. Echocardiogram March 2017 showed a normal ejection fraction of 60%. REEXAMINATION/REEVALUATION: Time:07:30. Intermittent palpitations but no chest pain. Monitor reveals atrial fibrillation ventricular rate 97-100 with runs of trigeminy. Time:08:30. After oral beta-blockers still in atrial fibrillation with RVR and ventricular rates 100-110. Frequent PVCs. Cardizem ordered. Time:09:30. Afib with rate control at 83. Feels better. MEDICAL DECISION MAKIN-year-old female with a history of atrial fibrillation, hypothyroidism, hypertension, obesity, DVT status post IVC filter in 2010, chronic neck and low back pain presents to the ED complaining of palpitations. Patient with atrial fibrillation and RVR not controlled by her usual beta-blockers. Treated with Cardizem. Ventricular ectopy with runs of trigeminy. Potassium and magnesium are normal. No chest pain, acute ischemic EKG changes, elevated troponin or other signs of acute coronary syndrome. She has repeatedly refused anticoagulation and is poorly compliant with medications. Patient will be admitted for rate control, observation, further evaluation and management. CRITICAL CARE TIME: Due to the high probability of sudden clinically significant hemodynamic and cardiovascular deterioration, this patient with a- fib/RVR required multiple, frequent reevaluations of vital signs and response to therapy. Additional critical care time was spent in review of medical records and arranging for admission and ongoing care with Dr. Desai. TOTAL CRITICAL CARE TIME: 40 minutes not including other separately reportable procedures. Counseled patient regarding diagnosis, diagnostic results and plan for admission. CALLS/CONSULTS: Time 08:30, Dr. Desai, Recommends agrees with plan for admission PATIENT CARE TRANSITIONED: Time: 09:30, Dr. Desai. Departure Diagnosis: Primary Impression: Palpitations Additional Impressions: Atrial fibrillation with rapid ventricular response H/O deep venous thrombosis Presence of IVC filter GERSON DE LEON MD Sep 06, 2017 06:38
--- NOTE | 2017-09-06 06:54 | RADRPT ---
PROCEDURE: XR Chest. CLINICAL INDICATION: Chest pain. TECHNIQUE: Single frontal view of the chest was obtained. COMPARISON: 04/19/2017. FINDINGS: The cardiomediastinal silhouette demonstrates enlargement of the cardiac silhouette. There are aorti c calcifications. There is mild pulmonary vascular congestion. No pleural effusion is seen. No definite pneumothorax. No acute osseous abnormality. IMPRESSION: Cardiomegaly with mild pulmonary vascular congestion. RPTAT: AAEE Fe Sotelo Physician Date Time Electronically viewed and signed by Fe Sotelo Physician on 09/06/2017 06:53 PH/
[2017-09-06 06:57] LABS: ANION GAP 14 (8-16); BLOOD UREA NITROGEN 19 mg/dl (7-20); CALCIUM 9.6 mg/dl (8.4-10.2); CARBON DIOXIDE 27 mmol/L (21-31); CHLORIDE 105 mmol/L (97-110); CREATININE 0.85 mg/dl (0.44-1.00); GLUCOSE 124 mg/dl (70-220); SODIUM 141 mmol/L (135-144)
[2017-09-06 07:19] LABS: TROPONIN-I < 0.012 ng/ml (0.00-0.12)
[2017-09-06] MEDS ORDERED: DILTIAZEM 25 MG INJ IV ONE (09:00)
[2017-09-06] MEDS ORDERED: ONDANSETRON 4 MG INJ IV PRN ×2 (10:30→17:00)
[2017-09-06] MEDS ORDERED: PROP160C PO (12:08)
[2017-09-06] MEDS ORDERED: HYDR12.58 PO (12:09)
[2017-09-06] MEDS ORDERED: NACL 0.9% 3 ML SYG IV SCH (17:00)
[2017-09-06] MEDS ORDERED: LORAZEPAM 2 MG INJ IV PRN (17:00)
[2017-09-06] MEDS: DILTIAZEM 60 MG TAB PO SCH ×2 (17:20→22:35)
[2017-09-06] MEDS ORDERED: LORAZEPAM 0.5 MG TAB PO PRN (17:30)
[2017-09-06 18:19] VITALS: TEMP 97.7
--- NOTE | 2017-09-06 18:29 | HP ---
Date/Time of Note Date/Time of Note DATE: 09/06/17 TIME: 18:04 Assessment/Plan VTE Prophylaxis VTE Prophylaxis Intervention: LMWH Lines/Catheters IV [facility]ter [facility] (from [facility]): Peripheral IV Assessment/Plan Assessment/Plan 71-year-old female with: 1. A. fib with RVR status post Cardizem IV in the ER, still with A fib but much better controlled HR down to the 80s, we will resume Cardizem 60 mg p.o. every 8 hours and if well controlled can be discharged on Cardizem CD 180 Continue aspirin, patient keeps refusing anticoagulation. Given her history of previous venous thromboembolism, right IVC in place, refusal of anticoagulation and now multiple episodes of uncontrolled A. fib. I will get Doppler of the lower extremities but also a CT angiogram of her chest to rule out pulmonary embolus, if positive the patient will have to be considered for refusal for anticoagulation. 2. Hypothyroidism continue Synthroid, TFTs within normal 3. Hypertension on Cardizem now 4. Lower extremity edema, patient claims that it happens when she has palpitations and is much improved currently, she also reported now that she has a history of venous thromboembolism with previous DVTs, she is status post right IVC filter. Patient has always refused anticoagulation. Doppler of the lower extremities will be done and depending on results further steps will be taken. Patient also declining furosemide currently because it makes her urinate too much, will continue her hydrochlorothiazide. 5. Anxiety: Ativan as needed. Prophylaxis: Lovenox for DVT prophylaxis, Pepcid for GI prophylaxis Disposition: Follow-up on Doppler of lower extremities and CT angiogram of the chest, continue heart rate control. HPI/ROS Admit Date/Time Admit Date/Time Hx of Present Illness Chief complaint: Rapid heartbeat, palpitations History of presenting illness: This is a 71-year-old female very well-known to me and also to Dr. Carpenter her primary network desktop support specialist who presented to the emergency department with palpitations, she was found to be in atrial fibrillation with rapid ventricular rate. Patient reports that she could not sleep overnight due to palpitations, she was dyspneic on exertion this morning when she walked to the emergency department from her car. She received a dose of beta-blockers in the emergency department with minimal improvement of her heart rate, she then received Cardizem 10 mg IV 1 and responded well to work with heart rate down to the 80s still in atrial fibrillation and also she is found to have multiple PVCs including trigeminy and bigeminy. Patient is admitted for monitoring overnight. Cardiac enzymes are negative, and had a discussion with her primary network desktop support specialist Dr. Carpenter and because Dr. Carpenter is leaving the current [place] [facility] group, patient told me that she will be following up with Dr. Fernandez On. She denies any chest pain currently, she is not having any shortness of breath currently. She is noted to have some lower extremity edema but she reports that is much better now and she chose to be on hydrochlorothiazide for it because the furosemide was making her urinate too much. Patient is known to negotiate her medications most of the time, she reports lots of allergies and reactions to medication she is put on but has tolerated hydrochlorothiazide and also has tolerated Cardizem at least on last admission. For some reason she was put on propranolol by her primary care physician, Dr Modi, apparently which did work for a while to control her heart rate but she did go back into A. fib/ flutter with RVR as of last night. ROS Constitutional: no complaints Eyes: no complaints ENT: no complaints Respiratory: no complaints Cardiovascular: other (Dyspnea on exertion), palpitations Gastrointestinal: no complaints Genitourinary: no complaints Musculoskeletal: no complaints Skin: no complaints Neurologic: no complaints Endocrine: no complaints Psychological: anxiety PMH/Family/Social Past Medical History Atrial fibrillation, chronic with multiple episodes of rapid ventricular rate Hypothyroidism Hypertension Anxiety disorder History of DVT Past Surgical History Status post partial colectomy for diverticulitis and colostomy reversal in 2011 Status post hysterectomy Status post right IVC filter remotely Family History Significant Family History: no pertinent family hx Social History Alcohol Use: none Smoking Status: Former smoker Drug Use: none Exam/Review of Systems Vital Signs Vitals Vital Signs Date Time Temp Pulse Resp B/P Pulse Ox O2 Delivery O2 Flow Rate FiO2 09/06/17 13:22 88 18 158/108 96 Room Air 09/06/17 10:00 96.7 Exam Constitutional: alert, oriented, other (obesity ), well developed Respiratory: clear to auscultation, normal air movement Cardiovascular: irregular rhythm (atrial fibrillation ) Gastrointestinal: non-tender, soft Musculoskeletal: nl extremities to inspection Extremities: normal pulses, other (+ 1 edema, more pronounced pedal ) Neurological: PERCUSSION INSTRUCTOR II-XII intact, nl mental status, nl speech, nl strength Labs Result Diagram: 09/06/17 0609/06/17 06 Medications Medications Current Medications Diltiazem HCl (Cardizem) 60 mg Q8 PO Last administered on 09/06/17t 17:20; Admin Dose 60 MG; Start 09/06/17 at 17:00 Ondansetron HCl (Zofran Inj) 4 mg Q6H PRN IV NAUSEA AND/OR VOMITING; Start at 17:00 Aspirin (Aspirin) 81 mg DAILY PO ; Start 09/07/17 at 09:00 Famotidine (Pepcid) 20 mg Q12 PO ; Start 09/06/17 at 21:00 Lorazepam (Ativan) 0.5 mg Q6H PRN PO ANXIETY; Start 09/06/17 at 17:30 Hydrochlorothiazide (Hydrochlorothiazide) 12.5 mg DAILY PO ; Start 09/07/17 at 09:00; Status UNV Procedures Procedures PROCEDURE: XR Chest. CLINICAL INDICATION: Chest pain. TECHNIQUE: Single frontal view of the chest was obtained. COMPARISON: 04/19/2017. FINDINGS: The cardiomediastinal silhouette demonstrates enlargement of the cardiac silhouette. There are aortic calcifications. There is mild pulmonary vascular congestion. No pleural effusion is seen. No definite pneumothorax. No acute osseous abnormality. IMPRESSION: Cardiomegaly with mild pulmonary vascular congestion. RPTAT: AAEE eF Sotelo Physician Date Time Electronically viewed and signed by Fe Sotelo Physician on 09/06/2017 06:53 SREEDHAR DESAI Sep 06, 2017 18:16
--- NOTE | 2017-09-06 19:25 | RADRPT ---
PROCEDURE: US DVT. CLINICAL INDICATION: Bilateral lower extremity swelling. TECHNIQUE: Multiple longitudinal and transverse images of the bilateral lower extremity veins were obtained with lofton scale and color Doppler imaging. 2D grayscale measurements with compression, co fabricio Doppler flow, and augmentation was performed. COMPARISON: No prior studies are available for comparison. FINDINGS: The bilateral common femoral, superficial femoral and popliteal veins are normally compressible thro ughout. Color flow demonstrates normal filling of the vessel. Normal waveforms are visualized and there is normal response to augmentation. IMPRESSION: 1. No evidence of a deep vein thrombosis involving either lower extremity. RPTAT: HMVK .Mateo Fang MD, MD Date Time Electronically viewed and signed by .Mateo Fang MD, on 09/06/2017 19:24 .K/
[2017-09-06] MEDS ORDERED: IOHEXOL 100 ML ONE (19:56)
[2017-09-06] MEDS ORDERED: SOD CHLORIDE 0.9% 100 ML ONE (19:56)
[2017-09-06 20:07] LABS: CREATINE KINASE 24 IU/L (23-200)
[2017-09-06 20:21] LABS: CK-MB 0.66 ng/ml (0.0-2.4)
[2017-09-06 20:26] LABS: TROPONIN-I < 0.012 ng/ml (0.00-0.12)
[2017-09-06 20:30] VITALS: Ht 172.7 cm; Wt 108.4 kg
[2017-09-06 20:35] VITALS: BP 180/115; RESP 19
[2017-09-06 20:41] VITALS: PULSE 81
--- NOTE | 2017-09-06 20:41 | RADRPT ---
PROCEDURE: CT angiogram chest. CLINICAL INDICATION: Shortness of breath. TECHNIQUE: CT angiogram of the chest was performed utilizing axial images with reconstructions in sagittal and coronal planes following the intravenous administration of 100 cc Omnipaque 350 contras t. The administered radiation dose is CTDI 19.7 mGy, DLP 796.3 mGy-cm. One or more of the following dose reduction techniques were used: automated exposure control, adjustment of the mA and/or kV acco rding to patient size and/or use of iterative reconstruction technique. 3D and / or MIPS reformats were performed. DICOM images are available. COMPARISON: No pertinent prior examinations are submitted for comparison. FINDINGS: Pulmonary angiogram: The pulmonary arteries are adequately opacified to the level of the segmental pulmonary artery branches. There is minimal respiratory motion artifact. Some tiny filling defects are seen within the right lower lobe segmental pulmonary emboli. Aortogram: There is no evidence of aortic aneurysm. Major branches of the aorta are patent. Athero sclerotic calcifications are noted in the aorta and its branches. Chest: Some mucus plugging is noted within the lung bases with some mild patchy airspace opacities and line ar atelectasis. No pleural effusions are seen. There is moderate cardiomegaly. Coronary artery calcifications are noted. No pericardial effusion is seen. There is no evidence of mediastinal or hilar adenopathy. There is a small hiatal hernia. Visualized Upper abdomen: Multiple stones are noted within the gallbladder. Osseous structures: Unremarkable. IMPRESSION: Positive for tiny pulmonary emboli in the right lower lobe. Mild mucous plugging and atelectasis or pneumonitis in the lower lobes. Cholelithiasis. Small hiatal hernia. Critical findings were called to the answering service at approximately 8:39 PM. RPTAT: HIKT .Pepe Gardiner MD, MD Date Time Electronically viewed and signed by .Pepe Gardiner MD, on 09/06/2017 20:41 .T/
[2017-09-06] MEDS: FAMOTIDINE 20 MG TAB PO SCH (21:00)
[2017-09-06] MEDS: ENOXAPARIN 60 MG/0.6 ML SYG SC SCH (22:26)
[2017-09-07] VITALS: BP 135/68; PULSE 75; RESP 18
[2017-09-07 00:11] VITALS: PULSE 84
[2017-09-07] MEDS: CYCLOBENZAPRINE 10 MG TAB PO PRN ×2 (02:23→08:54)
[2017-09-07] MEDS: traMADol 50 MG TAB PO PRN ×2 (02:23→08:55)
[2017-09-07 04:00] VITALS: BP 121/80; RESP 19
[2017-09-07 04:06] VITALS: PULSE 78
[2017-09-07] MEDS: DILTIAZEM 60 MG TAB PO SCH (06:47)
[2017-09-07] MEDS ORDERED: LEVOTHYROXINE 125 MCG TAB PO SCH (07:00)
[2017-09-07 07:41] LABS: BASOPHILS % 0.6 % (0.0-2.0); EOSINOPHILS # 0.2 10^3/ul (0.0-0.5); EOSINOPHILS % 3.4 % (0.0-7.0); HEMOGLOBIN 14.5 g/dl (12.0-16.0); LYMPHOCYTES # 1.5 10^3/ul (0.8-2.9); MEAN CORPUSCULAR VOLUME 97.1 fl (82.0-101.0); MEAN PLATELET VOLUME 9.7 fl (7.4-10.4); MONOCYTE # 0.7 10^3/ul (0.3-0.9); MONOCYTES % 13.7 % (0.0-11.0); NEUTROPHIL # 2.5 10^3/ul (1.6-7.5); NEUTROPHILS % 50.9 % (39.0-77.0); PLATELET COUNT 165 10^3/UL (140-415); RED BLOOD COUNT 4.53 10^6/ul (4.20-5.40); RED CELL DISTRIBUTION WIDTH 13.1 % (11.5-14.5)
[2017-09-07 07:59] LABS: ALBUMIN 3.1 g/dl (3.3-4.9); ALBUMIN/GLOBULIN RATIO 1.19; BILIRUBIN,INDIRECT 1.1 mg/dl (0-1.1); BILIRUBIN,TOTAL 1.1 mg/dl (0.2-1.3); CALCIUM 8.9 mg/dl (8.4-10.2); CREATININE 0.88 mg/dl (0.44-1.00); MAGNESIUM 1.9 mg/dl (1.7-2.5); POTASSIUM 4.3 mmol/L (3.5-5.1); TOTAL PROTEIN 5.7 g/dl (6.1-8.1)
[2017-09-07 08:07] VITALS: PULSE 90
[2017-09-07] MEDS ORDERED: ASPIRIN 81 MG TAB PO SCH (09:00)
[2017-09-07] MEDS ORDERED: ENOXAPARIN 40 MG/0.4 ML SYG SC SCH (09:00)
[2017-09-07] MEDS: FAMOTIDINE 20 MG TAB PO SCH (09:00)
[2017-09-07] MEDS ORDERED: HYDROCHLOROTHIAZIDE 12.5 MG CAP PO SCH (09:00)
[2017-09-07] MEDS: ENOXAPARIN 60 MG/0.6 ML SYG SC SCH (10:00)
--- NOTE | 2017-09-07 10:06 | PN ---
Date/Time of Note Date/Time of Note DATE: 09/07/17 TIME: 10:05 Assessment/Plan VTE Prophylaxis VTE Prophylaxis Intervention: other Lines/Catheters IV Catheter Type (from Nrs): Saline Lock Urinary Cath still in place: No Assessment/Plan Assessment/Plan 1. a fib with rvr, now rate controlled echo in march 2017 shows only L atrial enlargement and pulm htn 2. vte, chronic with small PE, asymptomatic IVC filter in sit patient now willing to try anticoagulation for these various conditions, will begin weliquis 3. patient to receive sleep study for r/o gunnar, ?nocturnal O2 4. if ambulation tolerated d/c home Subjective 24 Hr Interval Summary Free Text/Dictation no complaints feeling better, no oob Exam/Review of Systems Vital Signs Vitals Vital Signs Date Time Temp Pulse Resp B/P Pulse Ox O2 Delivery O2 Flow Rate FiO2 09/07/17 08:07 90 09/07/17 04:00 97.6 19 121/80 96 09/06/17 21:00 2.0 09/06/17 18:19 Room Air Intake and Output 09/06/17 09/06/17 09/07/17 15:00 23:00 07:00 Intake Total 450 ml Balance 450 ml Exam nad, rrr ctab Results Result Diagram: 09/07/17 0609 09/07/17 0609 Results 24 hrs Laboratory Tests Test 09/06/17 16:05 09/06/17 19:28 09/07/17 06:09 Free Thyroxine 1.54 Creatine Kinase 24 Creatine Kinase Index 2.8 Creatinine Kinase MB (Mass) 0.66 Troponin I < 0.012 Thyroid Stimulating Hormone (TSH) 4.030 White Blood Count 5.0 Red Blood Count 4.53 Hemoglobin 14.5 Hematocrit 44.0 Mean Corpuscular Volume 97.1 Mean Corpuscular Hemoglobin 32.0 Mean Corpuscular Hemoglobin Concent 33.0 Red Cell Distribution Width 13.1 Platelet Count 165 Mean Platelet Volume 9.7 Neutrophils % 50.9 Lymphocytes % 31.0 Monocytes % 13.7 H Eosinophils % 3.4 Basophils % 0.6 Nucleated Red Blood Cells % 0.0 Neutrophils # 2.5 Lymphocytes # 1.5 Monocytes # 0.7 Eosinophils # 0.2 Basophils # 0.0 Nucleated Red Blood Cells # 0.0 Sodium Level 141 Potassium Level 4.3 Chloride Level 104 Carbon Dioxide Level 28 Anion Gap 13 Blood Urea Nitrogen 16 Creatinine 0.88 Glucose Level 100 Calcium Level 8.9 Magnesium Level 1.9 Total Bilirubin 1.1 Direct Bilirubin 0.00 Indirect Bilirubin 1.1 Aspartate Amino Transf (AST/SGOT) 24 Alanine Aminotransferase (ALT/SGPT) 46 Alkaline Phosphatase 71 Total Protein 5.7 L Albumin 3.1 L Globulin 2.60 Albumin/Globulin Ratio 1.19 Medications Medications Current Medications Diltiazem HCl (Cardizem) 60 mg Q8 PO Last administered on 09/07/17 06:47; Admin Dose 60 MG; Start 09/06/17 at 17:00 Ondansetron HCl (Zofran Inj) 4 mg Q6H PRN IV NAUSEA AND/OR VOMITING; Start at 17:00 Aspirin (Aspirin) 81 mg DAILY PO ; Start 09/07/17 at 09:00 Famotidine (Pepcid) 20 mg Q12 PO ; Start 09/06/17 at 21:00 Lorazepam (Ativan) 0.5 mg Q6H PRN PO ANXIETY; Start 09/06/17 at 17:30 Hydrochlorothiazide (Hydrochlorothiazide) 12.5 mg DAILY PO ; Start 09/07/17 at 09:00 Enoxaparin Sodium (Lovenox) 110 mg Q12H SC Last administered on 09/06/17 22: 26; Admin Dose 110 MG; Start 09/06/17 at 22:00 Tramadol HCl (Ultram) 25 mg Q4H PRN PO PAIN Last administered on 09/07/17 08: 55; Admin Dose 25 MG; Start 09/07/17 at 00:30 Cyclobenzaprine HCl (Flexeril) 10 mg Q6H PRN PO MUSCLE SPASMS Last administered on 09/07/17 08:54; Admin Dose 10 MG; Start 09/07/17 at 00:30 MARIA LUISA LARIOS MD Sep 07, 2017 10:06
[2017-09-07] MEDS ORDERED: DILT180C94 PO (10:15)
[2017-09-07] MEDS ORDERED: APIX5TAB PO (10:15)
--- NOTE | 2017-09-07 10:17 | PDOCDIS ---
Discharge Instructions CONDITION Patient Condition: Good HOME CARE INSTRUCTIONS: Diet Instructions: Low Fat /Cholesterol ACTIVITY: Activity Restrictions: No Restrictions FOLLOW UP/APPOINTMENTS Follow-up Plan 1. follow up with primary care provider in 1 week 2. discuss sleep study with primary care to determine if oxygen is appropriate for you 3. increase activity as tolerated MARIA LUISA LARIOS MD Sep 07, 2017 10:17
[2017-09-07 12:03] VITALS: PULSE 71
--- NOTE | 2017-09-08 07:33 | DS ---
DATE OF ADMISSION: 09/06/2017 DATE OF DISCHARGE: 09/07/2017 DISCHARGE DIAGNOSES: 1. Atrial fibrillation with rapid ventricular response, paroxysmal, now improved. 2. Pulmonary embolism. 3. 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 4. Hypothyroidism. 5. Hypertension. HOSPITAL COURSE: Ms. Taylor presents to the emergency room at [facility] with dyspnea on exertion. She was diagnosed with atrial fibrillation and rapid response at that time. She is comm enced on oral diltiazem and her heart rate is brought clinically into control and she will be conver trent to a daily diltiazem at time of discharge. Because of some question of chest pain and known history of chronic venous thromboembolic disease. T he patient underwent CT angiogram of the chest, which does reveal small right-sided pulmonary emboli sm. These results were discussed with the patient at length and she is now willing to take anticoag ulation and will be discharged to home with Eliquis. At the time, is feeling well, eating, and ambulating without difficulty and is deemed stable for dis charge to home. DISCHARGE MEDICATIONS: The patient is asked to take the following medications: 1. Eliquis 10 mg b.i.d. for 7 days followed by 5 mg b.i.d. 2. Diltiazem 180 mg p.o. daily. The patient was asked to continue the following medicines without changes. 3. Hydrochlorothiazide 12.5 mg daily. 4. Levothyroxine 0.125 mg daily. 5. Tramadol as needed. The patient is asked to stop the following medications: 1. Propranolol (converted to diltiazem). 2. Aspirin (converted for Eliquis). DISCHARGE DISPOSITION: To home. DISCHARGE ACTIVITY: Increase in physical activity as tolerated. DISCHARGE DIET: Low sodium diet recommended. DISCHARGE FOLLOWUP: With primary care in 1 to 2 weeks' time. SUGGESTIONS FOR FOLLOWUP CARE: 1. Continue Ensure good heart rate control and compliance with anticoagulation. 2. The patient may benefit from sleep study to rule out sleep apnea and/or determine if nocturnal o xygen is in her best interest. Dictated By: MARIA LUISA LARIOS MD RER/NTS Conf#: [id number] DID#: [id number]
== END 2017-09-07 13:32 | disposition home or self-care (01) ==
LOC: E/R 04:21 → MS4 10:09
PROVIDERS: ADMIT Internal Medicine; ATTEND Internal Medicine
DX: I48.2 Chronic atrial fibrillation (principal); I26.99 Other pulmonary embolism without acute cor pulmonale; I10 Essential (primary) hypertension; E03.9 Hypothyroidism, unspecified; E66.9 Obesity, unspecified; Z68.36 Body mass index [BMI] 36.0-36.9, adult; R60.0 Localized edema; F41.9 Anxiety disorder, unspecified; Z86.718 Personal history of other venous thrombosis and embolism; Z79.82 Long term (current) use of aspirin; Z88.6 Allergy status to analgesic agent; Z88.0 Allergy status to penicillin; Z87.891 Personal history of nicotine dependence
CPT/HCPCS: 36415; 71010; 71275; 80048; 80053; 82550; 82553; 83735; 84439; 84443; 84484; 85025; 93005; 93970; 96374; 99291; G0378; J1650; Q9967

== ENCOUNTER 2018-06-19 05:57 | Emergency (ER) | END 2018-06-19 08:31 | disposition home or self-care (01) ==